=== PATIENT | female | born 2000 | race Caucasian/White ===

== ENCOUNTER 2020-12-28 22:05 | Emergency (ER) | payer OTHER, SELFPAY ==
--- NOTE | ~2020-12-28 | XR_ITS ---
XR foot RT min 3V 12/28/2020 22:37 INDICATION: Right foot pain after injury PROCEDURE: 4 views right foot COMPARISON: 07/20/2015 FINDINGS: Fracture, dislocation or subluxation is not identified. Lisfranc joint intact. The soft tis sues appear within normal limits. No foreign bodies are identified. IMPRESSION: 1: NO ACUTE BONE OR JOINT ABNORMALITY IDENTIFIED. Reviewed, dictated and finalized at location A. DRYING MACHINE OPERATOR
[2020-12-28 22:09] VITALS: BP 125/82; PULSE 94; RESP 18; TEMP 35.7; O2SAT 100
--- NOTE | 2020-12-28 22:26 | ED_ITS ---
HPI - Extremity Injury (Lower) General Chief Complaint: Extremity Injury, Lower Stated Complaint: R foot injury Time Seen by Provider: 12/28/20 22:13 Source: patient Mode of arrival: ambulatory Limitations: no limitations History of Present Illness HPI Narrative: Patient is a 20-year-old female complaining right foot pain after she dropped a heavy object on it at work this afternoon. Patient denies any other pain or injury. Related Data Home Medications Medication Instructions Recorded Confirmed No Home Medications 11/01/19 11/01/19 Allergies Allergy/AdvReac Type Severity Reaction Status Date / Time codeine Allergy Mild Rash Verified 12/28/20 22:12 Review of Systems Review of Systems: All systems reviewed & are unremarkable except as noted in HPI and below PMFSH Past Medical History Medical History (Updated 12/28/20 @ 22:35 by Cesar De Santiago MD) Anxiety Chlamydia Scoliosis Surgical History Surgical History H/O adenoidectomy History of tonsillectomy Social History Social History Smoking status: Never smoker Gender identity (if verbalized by the patient): Female Exam Const: General: no acute distress and alert Orientation/consciousness: patient oriented x3 HENMT: Head: normal to inspection Eyes: Conjunctivae: conjunctivae normal Neck: Neck: normal visual inspection Resp: Effort & Inspection: normal respiratory effort Skin: General skin exam: normal color Extrem: Other: Negative a foot deformity, mild ecchymosis dosral aspect of right foot, neurovasc intact Course Vital Signs Vital signs: Vital Signs Temperature 35.7 C L 12/28/20 22:09 Pulse Rate 94 12/28/20 22:09 Respiratory Rate 18 12/28/20 22:09 Blood Pressure 125/82 12/28/20 22:09 Pulse Oximetry 100 12/28/20 22:09 Temperature 35.7 C L 12/28/20 22:09 Pulse Rate 94 12/28/20 22:09 Respiratory Rate 18 12/28/20 22:09 Blood Pressure 125/82 12/28/20 22:09 Pulse Oximetry 100 12/28/20 22:09 MDM - Extremity Injury (Lower) Differential Diagnosis Differential diagnosis: Likely other (Foot sprain, foot sprain, foot contusion, fracture, dislocation) Discharge Plan Discharge Clinical Impression: Contusion of foot, right Qualifiers: Encounter type: initial encounter Qualified Code(s): S90.31XA - Contusion of right foot, initial encounter Patient Disposition: Home, Self-Care Condition: Stable Instructions: Foot Contusion (ED) Prescriptions: No Action No Home Medications RF: 0 Follow-up/Referrals: PHYSICIAN,RISK ASSESSOR [Primary Care Provider] - Time of Disposition: 22:35
== END 2020-12-28 23:01 | disposition home or self-care (01) ==
PROVIDERS: Emergency Provider Emergency Medicine
DX: S90.31XA Contusion of right foot, initial encounter (principal); W20.8XXA Other cause of strike by thrown, projected or falling object, initial encounter
CPT/HCPCS: 73630; 99283

== ENCOUNTER 2021-10-17 19:40 | Emergency (ER) | payer OTHER, SELFPAY ==
--- NOTE | ~2021-10-17 | US_ITS ---
EXAMINATION: US OB <=14 wk fetus w TV DATE: 10/17/2021 23:15 INDICATION: Vaginal bleeding during first trimester TECHNIQUE: Real-time pelvic transabdominal and transvaginal ultrasound was performed. COMPARISON: None. FINDINGS: The uterus measures 8.4 x 5.7 x 4.5 cm. The endometrial thickness measures 8 mm. No intrau terine gestational sac is identified. The right ovary measures 2.2 x 2.3 x 2.2 cm. The left ovary chelsea sures 2.4 x 1.5 x 1.9 cm. There is normal vascular flow in the ovaries. There is no free fluid in the pelvis. IMPRESSION: 1. of unknown location. Although no intrauterine gestational sac is seen, this may be due t o early gestation. If the patient is clinically stable, recommend followup with serial beta-hCG and u ltrasound. Reviewed, dictated and finalized at location F. ING ANCHOR IMPRESSION: 1. of unknown location. Although no intrauterine gestational sac is s een, this may be due to early gestation. If the patient is clinically stable, r ecommend followup with serial beta-hCG and ultrasound.
[2021-10-17 19:44] VITALS: BP 121/73; PULSE 97; RESP 20; TEMP 36.7; O2SAT 99
[2021-10-17 22:07] LABS: Basophils Percent Auto 0.3 % (0.2-1.2); Eosinophils Absolute Auto 0.3 K/mm3 (0-0.3); Eosinophils Percent Auto 4.3 % (0-4.4); Hematocrit 37.2 % (37.0-47.0); Hemoglobin 12.1 g/dL (12.0-15.0); Immature Granulocyte Absolute 0.02 K/mm3 (0.00-0.031); Immature Granulocyte Percent A 0.3 % (0-0.5); Lymphocytes Absolute Auto 2.09 K/mm3 (0.9-3.2); Lymphocytes Percent Auto 34.8 % (18.3-44.2); Mean Corpuscular HGB Conc 32.5 g/dl (32-36); Mean Corpuscular Hemoglobin 27.9 pg (26-34); Mean Corpuscular Volume 85.9 fl (80-100); Mean Platelet Volume 9.5 fl (7.4-10.4); Monocytes Absolute Auto 0.6 K/mm3 (0.1-0.6); Monocytes Percent Auto 9.2 % (2.6-8.5); Neutrophils Absolute Auto 3.1 K/mm3 (1.3-6.7); Neutrophils Percent Auto 51.1 % (45.5-73.1); Platelet Count Result 315 k/mm3 (150-375); Red Blood Count 4.33 M/mm3 (4.2-5.4); Red Cell Distribution Width 12.7 % (11.5-14.5)
--- NOTE | 2021-10-17 22:18 | ED.GENADULT ---
HPI - General Adult General Chief complaint: Vaginal Bleeding Stated complaint: 5 weeks , vaginal bleeding Time Seen by Provider: 10/17/21 22:02 Source: patient Mode of arrival: ambulatory Limitations: no limitations History of Present Illness HPI narrative: Pt presents of evaluation of vaginal bleeding. She states she took four home tests on 10/14/21 which were all positive. She has a hx of regular menstruation and LMP was 09/09/21. She states she had a quant hcg drawn today with a value of 18. . She has not had an ultrasound during this . She states this morning she noted a pink tinge on the tissue when wiping after urination. She contacted her OBGYN, Dr Moeller, today and states that she was told that her symptoms could be normal. They recommended she have a repeat quant drawn one week from today. She states tonight she noted a few drops of blood on the tissue when wiping after urination. She has not seen any blood in her clothing. She denies any fever, chills, nausea, vomiting, abdominal pain, vaginal discharge, change in bowel pattern. No hx of abdominal surgeries. She does not know her blood type. No additional complaints or concerns. Related Data Allergies Allergy/AdvReac Type Severity Reaction Status Date / Time codeine Allergy Mild Rash Verified 10/17/21 19:51 Review of Systems Review of Systems: CONSTITUTIONAL: Denies fever, chills, or sweats. EYES: Denies visual changes, redness, or discharge. ENT: Denies rhinorrhea, congestion, sore throat, or otalgia. CARDIOVASCULAR: Denies chest pain, palpitations, or edema. RESPIRATORY: Denies cough or dyspnea. GASTROINTESTINAL: Denies abdominal pain, nausea, vomiting, or diarrhea. GENITOURINARY: Reports blood on tissue when wiping after urinating. Denies vaginal bleeding otherwise. Denies dysuria or hematuria. SKIN: Denies rash or itching. MUSCULOSKELETAL: Denies back pain, joint pain, or myalgia. NEUROLOGIC: Denies headache, numbness, dizziness, or weakness. PSYCHIATRIC: Denies anxiety or depression. [facility] Past Medical History Medical History (Updated 10/18/21 @ 00:15 by Terry Pascual, JONN, ) Anxiety Chlamydia Scoliosis Surgical History Surgical History H/O adenoidectomy History of tonsillectomy Family History Family History (Updated 10/17/21 @ 22:26 by Terry Pascual [facility]) Mother No pertinent past medical history Social History Social History Smoking status: Never smoker Gender identity (if verbalized by the patient): Female Exam Narrative: GENERAL: Well-appearing, well-nourished, and in no acute distress. HEAD: Normocephalic, atraumatic. EYES: PERRLA and EOMI. ENT: Nares clear, no rhinorrhea or epistaxis. Mucous membranes moist. Oropharynx without tonsillar hypertrophy exudate or other lesions. Bilateral TMs pearly rubalcava nonbulging NECK: Supple. No adenopathy or masses. No carotid bruits or JVD CHEST: Clear to auscultation. No respiratory distress. No wheezes rales or rhonchi HEART: Regular rate and rhythm. No murmur heard. Normal peripheral pulses. ABDOMEN: Soft, nontender, nondistended, normal active bowel sounds. EXTREMITIES: Normal range of motion. No edema. GENITAL: No external genital lesions. No adnexal tenderness. No cervical motion tenderness. Small amount of mucus consistent blood-tinged drainage in vaginal vault. Cervical os is closed. SKIN: Warm, dry, no rash. NEURO: No focal deficits. Alert and oriented x3. PSYCH: Normal mood and affect. Course Course Emergency Course: This is a 20-year-old female who presented with complaints of blood on tissue when wiping after urination with recent positive test. Quant earlier today was 18. Repeat today 16.17. She is RH+. Patient had no abdominal pain and no abdominal tenderness. Ultrasound did not reveal intrauterine or e
[2021-10-17 22:25] LABS: Beta HCG Quantitative 16.17 mIU/ML
[2021-10-17 22:32] VITALS: BP 119/79; PULSE 102; RESP 18; O2SAT 100
[2021-10-17 22:55] LABS: Add Urine Microscopic? YES; Appearance Urine Cloudy (Clear); Bacteria Urine Trace /hpf; Bilirubin Urine Negative (Negative); Blood Urine 2+ (Negative); Budding Yeast Urine Present /hpf; Color Urine Yellow (Yellow); Glucose Urine UA Negative (Negative); Ketones Urine Negative (Negative); Leukocyte Esterase Ur 1+ LEU/UL (Negative); Mucus Urine Rare /lpf; Nitrate Urine Negative (Negative); Protein Urine Negative (Negative); Specific Grav Ur 1.018 (1.001-1.035); Squamous Epithelial Cell Urine Many /hpf (Few); Urobilinogen Urine Negative mg/dL (<2.0)
[2021-10-17 23:01] LABS: Alanine Aminotransferase 22 U/L (4-35); Albumin Level 4.7 g/dL (3.5-5.1); Alkaline Phosphatase 84 U/L (38-126); Anion Gap 6 mmol/L (8-16); Aspartate Amino Transferase 32 U/L (14-36); Bilirubin,Total 0.4 mg/dL (0.2-1.3); Blood Urea Nitrogen 13 mg/dL (7-17); Calcium 9.7 mg/dL (8.4-10.2); Carbon Dioxide 26 mmol/L (22-30); Chloride 105 mmol/L (98-107); Estimated CRCL calculation 102 ml/min; Estimated Glomerular Filt Rate > 60; Glucose 102 mg/dL (65-110); Lipase 53 U/L (23-300); Potassium 3.9 mmol/L (3.4-5.0); Sodium 137 mmol/L (137-145)
[2021-10-18 00:43] VITALS: BP 120/84; PULSE 100; RESP 18; O2SAT 100
== END 2021-10-18 00:48 | disposition home or self-care (01) ==
PROVIDERS: Emergency Medicine; Emergency Provider Nurse Practitioner
DX: O20.0 Threatened abortion (principal); O23.41 Unspecified infection of urinary tract in pregnancy, first trimester; Z3A.01 Less than 8 weeks gestation of pregnancy; Z88.5 Allergy status to narcotic agent
CPT/HCPCS: 36415; 76801; 76817; 80053; 81001; 83690; 84702; 85025; 86900; 86901; 87070; 87077; 87086; 87088; 87491; 87591; 87808; 99284

== ENCOUNTER 2022-01-14 12:22 | Emergency (ER) | payer OTHER, SELFPAY ==
[2022-01-14 12:29] VITALS: BP 129/89; PULSE 102; RESP 16; O2SAT 100
[2022-01-14 14:06] LABS: Basophils Percent Auto 0.5 % (0.2-1.2); Eosinophils Percent Auto 0.5 % (0-4.4); Hemoglobin 12.6 g/dL (12.0-15.0); Immature Granulocyte Absolute 0.01 K/mm3 (0.00-0.031); Immature Granulocyte Percent A 0.2 % (0-0.5); Lymphocytes Absolute Auto 1.67 K/mm3 (0.9-3.2); Lymphocytes Percent Auto 26.1 % (18.3-44.2); Mean Corpuscular HGB Conc 33.2 g/dl (32-36); Mean Corpuscular Hemoglobin 27.8 pg (26-34); Mean Corpuscular Volume 83.7 fl (80-100); Mean Platelet Volume 9.9 fl (7.4-10.4); Monocytes Absolute Auto 0.4 K/mm3 (0.1-0.6); Monocytes Percent Auto 6.9 % (2.6-8.5); Neutrophils Absolute Auto 4.2 K/mm3 (1.3-6.7); Neutrophils Percent Auto 65.8 % (45.5-73.1); Platelet Count Result 324 k/mm3 (150-375); Red Blood Count 4.54 M/mm3 (4.2-5.4); White Blood Count 6.4 K/mm3 (4.5-10.0)
--- NOTE | 2022-01-14 14:14 | ED.NAVMDI ---
HPI - Nausea/Vomiting/Diarrhea General Chief complaint: Nausea/Vomiting/Diarrhea Stated complaint: vomiting, 8 weeks Time Seen by Provider: 01/14/22 14:12 Source: patient Mode of arrival: ambulatory Limitations: no limitations History of Present Illness HPI Narrative: Patient is a 21-year-old female complaining of nausea and vomiting, nonbilious nonbloody x1 week. Patient states that she is 8 weeks . Patient denies any abdominal pain, pelvic pain, vaginal bleeding, vaginal discharge, urinary symptoms, fever or chills. 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 Related Data Allergies Allergy/AdvReac Type Severity Reaction Status Date / Time codeine Allergy Mild Rash Verified 10/17/21 19:51 Review of Systems Review of Systems: All systems reviewed & are unremarkable except as noted in HPI and below Constitutional: Constitutional: Denies body ache(s), Denies chills, Denies excessive sweating, Denies fatigue, Denies fever(s), Denies headache(s), Denies lethargy, Denies malaise, Denies weakness and Denies weight loss Eyes: Eyes: Denies blurry vision, Denies change in vision and Denies loss of vision ENT: Denies dizziness, Denies ear discharge, Denies headache(s), Denies lip swelling, Denies epistaxis, Denies nasal congestion, Denies neck pain, Denies throat swelling and Denies tongue swelling Cardiovascular: Cardiovascular: Denies chest pain, Denies chest pain at rest, Denies chest pain with activity, Denies diaphoresis, Denies rapid heart rate, Denies edema, Denies irregular heart rhythm, Denies lightheadedness, Denies palpitations, Denies dyspnea and Denies dyspnea on exertion Respiratory: Respiratory: Denies chest congestion, Denies cough, Denies hemoptysis, Denies dyspnea and Denies dyspnea on exertion Gastrointestinal: Gastrointestinal: Denies abdominal pain, Denies melena, Denies hematochezia, Denies diarrhea, Reports nausea, Reports vomiting and Denies hematemesis Musculoskeletal: Musculoskeletal: Denies abnormal gait, Denies deformity, Denies joint swelling, Denies limited range of motion, Denies neck pain and Denies numbness Neurologic: Denies Abnormal speech present, Denies abnormal gait, Denies confusion, Denies dizziness, Denies headache(s), Denies focal weakness, Denies loss of vision, Denies numbness, Denies Other visual disturbances, Denies Sensory deficit (Neuro) and Denies weakness Psychiatric: Psychiatric: Denies confusion, Denies depression, Denies auditory hallucinations, Denies homicidal ideation and Denies suicidal ideation Endocrine: Endocrine: Denies cold intolerance, Denies excessive sweating, Denies fatigue, Denies heat intolerance and Denies palpitations Hematologic/Lymphatic: Hematologic/Lymphatic: Denies easy bleeding and Denies easy bruising Allergic/Immunologic: Allergic/Immunologic: Denies lip swelling, Denies throat swelling and Denies tongue swelling PMFSH Past Medical History Medical History (Updated 01/14/22 @ 16:16 by Cesar De Santiago MD) Anxiety Chlamydia Scoliosis Surgical History Surgical History H/O adenoidectomy History of tonsillectomy Family History Family History Mother No pertinent past medical history Social History Social History Smoking status: Never smoker Gender identity (if verbalized by the patient): Female Exam Const: General: cooperative, healthy appearing, comfortable, no acute distress, well developed, alert and awake; No confusion Orientation/consciousness: oriented to person, oriented to place, oriented to time, patient oriented x3 and No confusion Limitations: no limitations HENMT: Head: normal to inspection, normocephalic and atraumatic Ears: hearing grossly normal bilaterally, TM normal on the right and TM normal on
[2022-01-14 14:15] LABS: Alanine Aminotransferase 31 U/L (4-35); Albumin Level 4.8 g/dL (3.5-5.1); Alkaline Phosphatase 92 U/L (38-126); Anion Gap 10 mmol/L (8-16); Aspartate Amino Transferase 46 U/L (14-36); Blood Urea Nitrogen 17 mg/dL (7-17); Calcium 9.3 mg/dL (8.4-10.2); Carbon Dioxide 23 mmol/L (22-30); Chloride 104 mmol/L (98-107); Estimated CRCL calculation 117 ml/min; Estimated Glomerular Filt Rate > 60; Glucose 79 mg/dL (65-110); Lipase 47 U/L (23-300); Potassium 3.8 mmol/L (3.4-5.0); Sodium 137 mmol/L (137-145)
[2022-01-14] MEDS: SODIUM CHLORIDE 0.9% IV 1,000 ML 999 ML IV CONT (14:25)
[2022-01-14] MEDS: PROMETHAZINE HCL 25 MG/ML AMPUL 12.5 MG IV PUSH (14:43)
[2022-01-14 15:45] LABS: Add Urine Microscopic? YES; Appearance Urine Cloudy (Clear); Bilirubin Urine Negative (Negative); Color Urine Amber (Yellow); Glucose Urine UA Negative (Negative); Ketones Urine 2+ mg/dL (Negative); Leukocyte Esterase Ur 2+ LEU/UL (Negative); Mucus Urine Heavy /lpf; Nitrate Urine Negative (Negative); Protein Urine 1+ mg/dL (Negative); RBC Urine 21-50 /hpf (0-2); Squamous Epithelial Cell Urine Many /hpf (Few); WBC Urine 51-75 /hpf
[2022-01-14 15:46] LABS: Blood Urine Negative (Negative); Specific Grav Ur 1.035 (1.001-1.035)
== END 2022-01-14 16:30 | disposition home or self-care (01) ==
PROVIDERS: Emergency Medicine; Emergency Provider Emergency Medicine
DX: O21.9 Vomiting of pregnancy, unspecified (principal); O23.41 Unspecified infection of urinary tract in pregnancy, first trimester; Z3A.08 8 weeks gestation of pregnancy
CPT/HCPCS: 36415; 80053; 81001; 81025; 83690; 84702; 85025; 87086; 87088; 96361; 96374; 99284; J2550; J7030

== ENCOUNTER 2022-06-16 15:52 | Observation (INO) | payer OTHER, SELFPAY ==
[2022-06-16 16:12] VITALS: BP 125/73; PULSE 105; BMI 33.7
--- NOTE | 2022-06-16 16:12 | OBADM ---
This patient, Sangeeta Mohan, admitted to the OB room OB Post 115 for observation. Patient/family oriented to hospital policies and general routines including ID bracelet, bed and alarms, visiting hours, pain management, procedures, bathroom and other care routines, personal items, smoking policy, room service/diet, and visiting hours. Patient/Family are encouraged to report perceived risks to care and to ask questions if they do not understand what they are told or what they should do. Pt. states she had ctxns from [id number] this a.m., they then stopped and then started back up at 1430 this afternoon. She states she feels them in her lower abdomen and around her back and rates them 4/10. Pt. states she has been drinking water all day and denies vaginal bleeding and leaking of fluid.
[2022-06-16 16:16] VITALS: BP 131/67; PULSE 103; TEMP 37
[2022-06-16 16:31] VITALS: BP 116/66; PULSE 103
[2022-06-16] MEDS: TERBUTALINE SULFATE 1 MG/ML VIAL 0.25 MG SUB-Q (16:37)
[2022-06-16 16:46] VITALS: BP 118/61; PULSE 110
[2022-06-16 17:01] VITALS: BP 115/60; PULSE 117
--- NOTE | 2022-06-20 07:32 | PM.OBTRLD ---
OB - Triage/Final Diagnosis Visit Information Reason for evaluation: threatened labor Comments/Additional reasons for admission: I have assessed the risk for this patient, Sangeeta Kristi Mohan, and determined that she would benefit from observation care.
== END 2022-06-16 17:47 | disposition home or self-care (01) ==
PROVIDERS: Admitting Provider Obstetrics & Gynecology; Visit Provider Obstetrics & Gynecology
DX: O47.1 False labor at or after 37 completed weeks of gestation (principal); Z3A.28 28 weeks gestation of pregnancy
CPT/HCPCS: 96372; G0378; G0379; J3105

== ENCOUNTER 2022-08-02 20:22 | Observation (INO) | payer OTHER, SELFPAY ==
[2022-08-02] VITALS (7 sets, daily range): BP systolic 123–136; BP diastolic 56–80; PULSE 93–138; BMI 30.4
[2022-08-02] MEDS: NIFEdipine 10 MG CAPSULE PO (21:44)
--- NOTE | 2022-08-02 21:51 | PC.NURSE ---
2103- Called Dr. Moeller- informed of pt admission for contractions that are 2 minutes apart lasting 60 sec. she states that she has had them consistently since 1909. FHT reviewed. sve fingertip/soft/anterior. orders received to PO hydrate, procardia 10mg po if contractions do not subside with hydration, will continue to monitor and call if questions/concerns.
--- NOTE | 2022-08-02 22:14 | PC.NURSE ---
2115- pt states that she has felt more wet today than prior . not sure if water broke or not.
--- NOTE | 2022-08-02 22:16 | OBADM ---
This patient, Sangeeta Mohan, admitted to the OB room OB Post 113 for observation. Patient/family oriented to hospital policies and general routines including ID bracelet, bed and alarms, visiting hours, pain management, procedures, bathroom and other care routines, personal items, smoking policy, room service/diet, and visiting hours. Patient/Family are encouraged to report perceived risks to care and to ask questions if they do not understand what they are told or what they should do.
--- NOTE | 2022-08-02 23:24 | PC.NURSE ---
2250- CALLED Dr. Moeller- [facility] reviewed. ROMANA recheck unchanged from previous exam. pt states that her contractions are about the same as when she came in. informed Dr. of white cheesy vaginal discharge also noted on exam. pt states that she had yeast infection about 2 weeks ago but isn't sure if it ever cleared up. order received to d/c pt home with instructions to increase po fluids,increase periods of rest, and Rx for diflucan sent to pharmacy.
--- NOTE | 2022-08-03 11:30 | PM.OBTRLD ---
OB - Triage/Final Diagnosis Visit Information Comments/Additional reasons for admission: I have assessed the risk for this patient, Sangeeta Mohan, and determined that she would benefit from observation care. Evaluation Vital signs: Vital Signs - 24 hr 08/02/22 21:13 08/02/22 21:46 08/02/22 22:01 Pulse Rate 93 99 138 H Blood Pressure 129/67 134/80 123/66 08/02/22 22:15 08/02/22 22:30 08/02/22 22:46 Pulse Rate 113 H 120 H 102 H Blood Pressure 129/74 136/71 134/56 L 08/02/22 23:00 Pulse Rate 116 H Blood Pressure 134/67 Final Diagnosis (1) contractions: Code(s): O47.00 - False labor before 37 completed weeks of gestation, unspecified trimester Status: Acute
== END 2022-08-02 23:14 | disposition home or self-care (01) ==
PROVIDERS: Admitting Provider Obstetrics & Gynecology; Visit Provider Obstetrics & Gynecology
DX: O47.03 False labor before 37 completed weeks of gestation, third trimester (principal); Z3A.35 35 weeks gestation of pregnancy
CPT/HCPCS: 84112; A9270; G0378; G0379

== ENCOUNTER 2022-08-11 06:55 | Inpatient (IN) | payer OTHER, SELFPAY ==
[2022-08-11] VITALS (59 sets, daily range): BP systolic 79–140; BP diastolic 46–100; PULSE 88–135; RESP 16–18; TEMP 36–36.6; O2SAT 98–100; BMI 34.4
--- OUTSIDE RECORDS SUMMARY | 2022-08-11 07:15 | XMS_ITS ---
:2000 Author Care Team Providers Name Role Phone Chinyere Moeller Primary Care Provider Unavailable Allergies Code Code System Name Reaction Severity Status Onset 2670 RxNorm Codeine Rash Mild Active ? Medications Name Status Start Date Stop Date ? ? acetaminophen 120 mg-codeine 12 mg/5 mL oral solution Unknown ? Not available albuterol sulfate HFA 90 mcg/actuation aerosol inhaler Active ? Not available amoxicillin 250 mg/5 mL oral suspension Unknown ? Not available amoxicillin 500 mg capsule Unknown ? Not a vailable amoxicillin 875 mg tablet Unknown ? Not av ailable amoxicillin 875 mg-potassium clavulanate 125 mg tablet Completed ? 12/08/2019 azithromycin 250 mg tablet Completed ? 08/31 TAKE 4 TABLETS BY MOUTH 1 TIME azithromycin 500 mg tablet Completed ? 05/29 TK 2 TS PO QD FOR 1 DAY benzonatate 200 mg capsule Completed ? 12/08 TK ONE C PO TID PRN COU cephalexin 500 mg capsule Completed ? 2018 cetirizine 10 mg tablet Completed ? 12/08/19 20 cyclobenzaprine 5 mg tablet Completed ? 07/21 TAKE 1 TABLET BY MOUTH EVERY 8 HOURS etonogestrel 0.12 mg-ethinyl estradiol 0.015 mg/24 hr Completed ? 08/10/2020 vaginal ring famotidine 20 mg tablet Unknown ? Not avai lable TK 1 T PO Q 12 H FOR 5 DAYS fluconazole 150 mg tablet Completed ? 2019 fluticasone propionate 50 mcg/actuation nasal Completed ? 02/10/2018 spray,suspension hydrocodone 5 mg-acetaminophen 325 mg tablet Completed ? 02/10/2018 ibuprofen 800 mg tablet Active ? Not avai lable ID NOW COVID-19 Test Kit Completed ? 021
--- OUTSIDE RECORDS SUMMARY | 2022-08-11 07:15 | XMS_ITS ---
:2000 Author Care Team Providers Name Role Phone LOC CRAFT MD Primary Care Provider [phone] Allergies Code Code System Name Reaction Severity [...] Completed ? 12/08/2019 azithromycin 250 mg tablet Unknown ? Not a vailable azithromycin 500 mg tablet Active ? Not a vailable TK 2 TS PO QD FOR 1 DAY benzonatate 200 mg capsule Completed ? 12/08 TK ONE C PO TID PRN COU cephalexin 500 mg capsule Completed ? 2018 cetirizine 10 mg tablet Completed ? 12/08/19 20 cyclobenzaprine 5 mg tablet Unknown ? Not available TK 1 T PO Q 8 H etonogestrel 0.12 mg-ethinyl estradiol 0.015 mg/24 hr Completed ? 08/10/2020 vaginal ring famotidine 20 mg tablet Unknown ? Not avai lable TK 1 T PO Q 12 H FOR 5 DAYS fluconazole 150 mg tablet Completed ? 2019 fluticasone propionate 50 mcg/actuation nasal Completed ? 02/10/2018 spray,suspension hydrocodone 5 mg-acetaminophen 325 mg tablet Completed ? 02/10/2018 ibuprofen 800 mg tablet Completed ? 08/10/20 20 ketorolac 10 mg tablet Completed ? 8 lidocaine 2 % mucosal jelly in applicator Completed ? 12/08/2019
--- NOTE | 2022-08-11 07:17 | WPDHPUPDATE1 ---
History and Physical Update Update Date/Time: 08/11/22 07:17 21 yo at 36w4d who presents with spontaneous rupture of membranes. History and Physical has been reviewed, including an updated exam of the patient. There are NO changes in the patient's condition. Risks, benefits, and alternatives have been discussed and questions answered. Patient agrees to proceed with procedure.
[2022-08-11] MEDS: LACTATED RINGERS 1,000 ML 125 ML IV CONT ×2 (08:11→12:20)
[2022-08-11] MEDS: AMPICILLIN 2 GM/NS 100 ML 2 GM/100 ML BAG IVPB (08:12)
--- NOTE | 2022-08-11 08:20 | LDADM ---
This patient, Sangeeta Mohan, was admitted to Labor/Delivery/Recovery 104 on 08/11/22 at 06:55. Plans for labor, pain management and were discussed with patient. Patient/family oriented to hospital policies and general routines including ID bracelet, bed and alarms, visiting hours, pain management, procedures, bathroom and other care routines, personal items, smoking policy, room service/diet and guest tray routines, infant security routines, and visiting hours. Patient/Family are encouraged to report perceived risks to care and to ask questions if they do not understand what they are told or what they should do. See OBIX for further documentation.
[2022-08-11 08:43] LABS: Basophils Percent Auto 0.2 % (0.2-1.2); Eosinophils Absolute Auto 0.1 K/mm3 (0-0.3); Eosinophils Percent Auto 0.6 % (0-4.4); Hematocrit 28.7 % (37.0-47.0); Hemoglobin 8.8 g/dL (12.0-15.0); Immature Granulocyte Absolute 0.04 K/mm3 (0.00-0.031); Immature Granulocyte Percent A 0.5 % (0-0.5); Lymphocytes Absolute Auto 1.47 K/mm3 (0.9-3.2); Lymphocytes Percent Auto 18.2 % (18.3-44.2); Mean Corpuscular HGB Conc 30.7 g/dl (32-36); Mean Corpuscular Volume 81.5 fl (80-100); Mean Platelet Volume 10.3 fl (7.4-10.4); Monocytes Absolute Auto 0.6 K/mm3 (0.1-0.6); Monocytes Percent Auto 7.8 % (2.6-8.5); Neutrophils Absolute Auto 5.9 K/mm3 (1.3-6.7); Neutrophils Percent Auto 72.7 % (45.5-73.1); Platelet Count Result 297 k/mm3 (150-375); Red Blood Count 3.52 M/mm3 (4.2-5.4); Red Cell Distribution Width 14.5 % (11.5-14.5); White Blood Count 8.1 K/mm3 (4.5-10.0)
[2022-08-11] MEDS: OXYTOCIN 30 UNITS/NS 500 ML 30 UNITS/500 ML BAG IV CONT (10:02)
[2022-08-11] MEDS: fentaNYL CITRATE INJ (*CRX) 100 MCG/2 ML VIAL 50 MCG IV PUSH (11:35)
[2022-08-11] MEDS: AMPICILLIN 1 GM/NS 50 ML 1 GM/50 ML BAG IVPB (12:20)
--- NOTE | 2022-08-11 12:22 | WPDANESEPPF ---
Anes - Initial Pre Proc Eval Procedure: labor epidural Date/Time: 08/11/22 12:22 Surgeon: Chinyere Moeller MD Pre Op Diagnosis: labor pain Pre Op Diagnosis: Labor/ROM Patient Data Age: 21 Gender: F Height: 1.63 m Weight: 91 kg Last Vital Signs Temp 36.4 C 08/11/22 10:19 Pulse 106 H 08/11/22 12:02 BP 119/67 08/11/22 12:02 O2 Del Method Room Air 08/11/22 08:19 Allergies Allergy/AdvReac Type Severity Reaction Status Date / Time codeine Allergy Mild Rash Verified 08/07/22 11:05 cephalexin Allergy Severe Rash Uncoded 08/07/22 11:05 Home Medications Medication Instructions Recorded Confirmed Type ferrous sulfate 324 mg (65 mg 324 mg PO BID 06/16/22 08/11/22 History iron) tablet,delayed release vit no.133-ferrous 1 tablet PO DAILY 06/16/22 08/11/22 History fumarate 28 mg-folic acid 800 mcg tablet () Laboratory Tests 08/11/22 08/11/22 08/11/22 08:01 08:01 08:01 WBC 8.1 K/mm3 K/mm3 (4.5-10.0) RBC 3.52 M/mm3 L M/mm3 (4.2-5.4) Hgb 8.8 g/dL L D g/dL (12.0-15.0) Hct 28.7 % L % (37.0-47.0) MCV 81.5 fl fl (80-100) MCH 25.0 pg L pg (26-34) MCHC 30.7 g/dl L g/dl (32-36) RDW 14.5 % % (11.5-14.5) Plt Count 297 k/mm3 k/mm3 (150-375) MPV 10.3 fl fl (7.4-10.4) Immature Gran % (Auto) 0.5 % % (0-0.5) Neut % (Auto) 72.7 % % (45.5-73.1) Lymph % (Auto) 18.2 % L % (18.3-44.2) [place] % (Auto) 7.8 % % (2.6-8.5) Eos % (Auto) 0.6 % % (0-4.4) Baso % (Auto) 0.2 % % (0.2-1.2) Lymph # (Auto) 1.47 K/mm3 K/mm3 (0.9-3.2) [place] # (Auto) 0.6 K/mm3 K/mm3 (0.1-0.6) Eos # (Auto) 0.1 K/mm3 K/mm3 (0-0.3) Baso # (Auto) 0.0 K/mm3 K/mm3 (0.0-0.1) Abs Immat Gran (auto) 0.04 K/mm3 H K/mm3 (0.00-0.031) Absolute Neuts (auto) 5.9 K/mm3 K/mm3 (1.3-6.7) Absolute Nucleated RBC 0.0 K/mm3 K/mm3 (0.0-0.012) Nucleated RBC % 0.0 % % (0.0-0.2) RPR Pending Blood Type AB Positive Antibody Screen Negative Patient hx anesthesia problems: none Family hx anesthesia problems: none Results Review: All pre-operative results and documents have been reviewed as part of the pre-operative evaluation. [facility] Past Medical History Medical History (Updated 08/03/22 @ 11:31 by Chinyere Moeller MD) Anxiety Chlamydia Scoliosis Surgical History Surgical History H/O adenoidectomy History of tonsillectomy Family History Family History (Updated 08/06/22 @ 12:35 by Melanie Newton RN) Mother No pertinent past medical history Father Cerebrovascular accident Social History Social History (Updated 01/23/22 @ 14:13 by Darlene Corona MA) Smoking status: Never smoker Alcohol intake: never Substance use: never Substance use type: does not use Gender identity (if verbalized by the patient): Female Spiritual care concerns: No Has the Lack of Transportation Kept You From Medical Appointments or From Getting Medications?: No Within the Past 12 Months, Were You Worried Whether Your Food Would Run Out Before You Got Money to Buy More?: Never True What is Your Housing Situation Today?: I Have Housing Are You Worried That in the Next 2 Months, You May Not Have Your Own Housing to Live In?: No Do You Have Trouble Paying Your Heating Or Electricity Bill?: No Do You Have Trouble Paying For Medicines?: No Are You Currently Unemployed and Looking for Work?: No Highest Level of Education Completed: High School Diploma/GED Do You Have Trouble With Childcare or the Care of a Family Member?: No Anes - Eval Final PreProcedure Day of Procedure 08/11/22 12:22 Patient weight: obese ASA classification: II Anesthetic plan: proceed An
--- NOTE | 2022-08-11 14:10 | PM.OBPRVD ---
OB - Delivery Note Procedure Procedure: Patient pushed for a spontaneous vaginal delivery. The fetus was delivered atraumatically and placed on the maternal abdomen. The cord was clamped and cut after 1 minute of life. The cord was double clamped and cut and a segment of cord was collected for cord gases. Cord blood was collected for blood type and Coomb's testing. The placenta delivered spontaneously and was noted to be intact. The perineum was inspected and there were no lacerations noted. The uterus was firm and good hemostasis was noted. The patient and fetus were stable in the delivery room. Induction method: None Delivery augmentation: Pitocin Delivery monitor: External FHT Route of delivery: Episiotomy description: None Laceration Description: None Specimen: No Quantitative Blood Loss (ml): 200 Anesthesia type: Epidural Disposition: Floor () Complications: No immediate complications Baby Date of : 08/11/22 Time of : 14:00 Weeks of gestation at delivery: 36 Infant gender: Female Weight (pounds): 6 Weight (ounces): 5 presentation: vertex position: Right Occiput Anterior Placenta delivery description: Spontaneous Cord Vessel Description: 3 Vessels score one minute: 8 score five minutes: 9 AMG Delivery Billing Delivery Delivery: Delivery Charge
--- NOTE | 2022-08-11 16:50 | OBPPTRN ---
Patient transferred to post room # 282 via wheelchair. Support person present. Oriented to unit, room, information board, rooming in, admission packet and security measures. Patient verbalizes understanding.
[2022-08-11] MEDS: POLYSACCHARIDE IRON COMPLEX 150 MG CAPSULE PO (17:33)
[2022-08-11] MEDS: IBUPROFEN 600 MG TABLET PO (18:59)
[2022-08-11] MEDS: DOCUSATE SODIUM 100 MG CAPSULE PO (18:59)
[2022-08-12 03:45] VITALS: BP 118/78; PULSE 93; RESP 16; TEMP 36.3; O2SAT 99
[2022-08-12] MEDS: IBUPROFEN 600 MG TABLET PO ×2 (05:41→19:20)
[2022-08-12 06:04] LABS: Hematocrit 26.8 % (37.0-47.0); Hemoglobin 8.3 g/dL (12.0-15.0)
--- NOTE | 2022-08-12 07:19 | PM.OBDSVD ---
DS: Admitting Diagnosis Discharge Date 08/12/22 Admitting Diagnosis intrauterine at term DS: Discharge Diagnosis Discharge Diagnosis Plan same OB - DS: Summary OB Procedures : None OB Procedures Intrapartum: Spontaneous Vag Delivery OB Procedures: : None Status at Discharge Functional status at discharge: independent ambulation Overall status at discharge: patient is back to baseline Time Spent with Patient Time attestation: Total time spent providing and/or coordinating discharge services: Time spent: Less than 30 minutes Exam Const: General: comfortable and no acute distress Resp: Effort & Inspection: normal respiratory effort Auscultation: clear to auscultation bilaterally Cardio: Rate: regular rate GI: GI Palp: Yes Soft to palpation Auscultation: normal bowel sounds Other: Fundus firm below umbilicus Psych: Appearance: grossly normal Mental Status: mental status grossly normal Affect: normal affect DS: Data Data Completed and Pending Labs on day of discharge: Labs from last 24 hours 08/12/22 08/11/22 08/11/22 05:37 08:01 08:01 WBC RBC Hgb 8.3 L Hct 26.8 L MCV MCH MCHC RDW Plt Count MPV Immature Gran % (Auto) Neut % (Auto) Lymph % (Auto) [place] % (Auto) Eos % (Auto) Baso % (Auto) Lymph # (Auto) [place] # (Auto) Eos # (Auto) Baso # (Auto) Abs Immat Gran (auto) Absolute Neuts (auto) Absolute Nucleated RBC Nucleated RBC % RPR Pending Blood Type AB Positive Antibody Screen Negative 08/11/22 08:01 WBC 8.1 RBC 3.52 L Hgb 8.8 L D Hct 28.7 L MCV 81.5 MCH 25.0 L MCHC 30.7 L RDW 14.5 Plt Count 297 MPV 10.3 Immature Gran % (Auto) 0.5 Neut % (Auto) 72.7 Lymph % (Auto) 18.2 L [place] % (Auto) 7.8 Eos % (Auto) 0.6 Baso % (Auto) 0.2 Lymph # (Auto) 1.47 [place] # (Auto) 0.6 Eos # (Auto) 0.1 Baso # (Auto) 0.0 Abs Immat Gran (auto) 0.04 H Absolute Neuts (auto) 5.9 Absolute Nucleated RBC 0.0 Nucleated RBC % 0.0 RPR Blood Type Antibody Screen Discharge Plan Discharge Attending physician on discharge: Matthias Benz Discharging Clinician: Matthias Benz Patient Disposition: Home, Self-Care Activity: as tolerated and pelvic rest Diet: regular Patient Instructions: Antibiotic Form, Vaginal Delivery (DC) Stand Alone Forms: General Discharge Information Follow-up/Referrals: Chinyere Moeller MD [Physician] - Discharge Medications: New acetaminophen [Mapap (acetaminophen)] 325 mg Tablet 650 mg PO Q6H PRN (Reason: Mild Pain (1-3) Or Headache) Qty: 30 0RF ibuprofen 600 mg Tablet 600 mg PO Q6H PRN (Reason: Cramping) Qty: 30 0RF Continued ferrous sulfate 324 mg (65 mg iron) Tablet,Delayed Release (Dr/Ec) 324 mg PO BID 28-800 mg-mcg Tablet 1 tablet PO DAILY Date of admission: 08/11/22 06:55 Primary Care Provider: UNKNOWN,DOCTOR Admitting Provider: Chinyere Moeller Attending physician on admission: Chinyere Moeller Condition: Stable
[2022-08-12 08:45] VITALS: BP 126/70; PULSE 94; RESP 14; TEMP 36.2
[2022-08-12] MEDS: MULTIVIT/MIN/PREN/FOL AC/IRON TABLET 1 TAB PO (08:46)
[2022-08-12] MEDS: POLYSACCHARIDE IRON COMPLEX 150 MG CAPSULE PO ×2 (08:46→16:15)
[2022-08-12] MEDS: DOCUSATE SODIUM 100 MG CAPSULE PO ×2 (08:47→16:15)
[2022-08-12 16:10] VITALS: BP 102/65; RESP 16; TEMP 36.4; O2SAT 99
[2022-08-12 19:10] VITALS: BP 128/70; RESP 16; TEMP 36.4; O2SAT 100
[2022-08-13] MEDS: TETANUS,DIPHTHERIA,AC PERTUSSIS ADULT (0.5 ML) BOOSTRIX IM (00:14)
[2022-08-13 07:28] LABS: Rapid Plasma Reagin Non-Reactive (NonReactive)
[2022-08-13] MEDS: DOCUSATE SODIUM 100 MG CAPSULE PO (07:58)
[2022-08-13] MEDS: MULTIVIT/MIN/PREN/FOL AC/IRON TABLET 1 TAB PO (07:58)
[2022-08-13] MEDS: POLYSACCHARIDE IRON COMPLEX 150 MG CAPSULE PO (07:58)
[2022-08-13] MEDS: IBUPROFEN 600 MG TABLET PO (07:59)
[2022-08-13 08:00] VITALS: BP 126/69; PULSE 98; RESP 16; TEMP 36.4; O2SAT 100
--- NOTE | 2022-08-13 11:30 | PC.NURSE ---
Patient viewed the discharge video Mother & Baby Care, The First Two Weeks . Patient was given the opportunity and encouraged to ask questions. Patient verbalized understanding of information shared and has been given the mother/baby guide for home reference.
--- NOTE | 2022-08-13 13:41 | PC.NURSE ---
[id number] Introductions were made, then consulted with patient to assess needs related to . Mother led the conversation with her?plans to feed?her infant and the?experience so far. Mother has questions and is open for discussion at this time. Mother's first infant was 37.3 weeks and we discussed her late pre-term of 36.4 EGA. Mother is feeding appropriately for growth of infant and understands stimulating infant to eat if needed. Infant has had appropriate feedings in the last 24 hours meets the outcomes for weight, output and jaundice at this time. Mother states she is confident to continue effectively breastfeed her infant at home or when to call for assistance and denies any additional assistance or education at this time. Reviewed risks of a late infant and what to watch for keeping infant actively and drinking at the breast. Mother placed infant skin to skin with encouragement, we reviewed the massage touch to stimulate to breastfeed, then reviewed bringing into mother's body nice a close and how to encourage optimal big, wide, open gape with a deep latch. Mother is also supplementing for low blood sugars. We discussed the risks and benefits of the feeding options. Reinforced understanding of milk production, transition of milk, signs of adequate intake, prevention/relief of engorgement, responsive after visualizing feeding cues, the different methods of stimulating to breastfeed 2-3 hours after the start of the last feeding, community resources, medication information reviewed per [facility] and when to call a provider using the resource of the mom and baby guide/[facility] website. Resources provided for inpatient and outpatient services using a resource guide. Mother voiced understanding of information and will call if there is a request for assistance. Reported to primary RN.
[2022-08-14 07:52] VITALS: BP 123/77; PULSE 98; RESP 20; TEMP 37.4; O2SAT 99
== END 2022-08-13 12:55 | disposition home or self-care (01) | DRG 560 ==
LOC: ANHLDR 11:02 → ANHOB2 08-12 07:20 → ANHLDR 08-15 10:28 → ANHOB2 08-15 10:28
PROVIDERS: Admitting Provider Student in an Organized Health Care Education/Training Program; Visit Provider Student in an Organized Health Care Education/Training Program
DX: O99.02 Anemia complicating childbirth (principal); D64.9 Anemia, unspecified; Z37.0 Single live birth; Z3A.36 36 weeks gestation of pregnancy; Z23 Encounter for immunization
CPT/HCPCS: 36415; 84112; 85014; 85018; 85025; 86592; 86850; 86900; 86901; 90471; 90686; 90715; A9270; G0008; J0290; J2590; J2795; J3010; J7120

== ENCOUNTER 2022-11-14 16:48 | Emergency (ER) | payer OTHER, SELFPAY ==
[2022-11-14 16:50] VITALS: BP 129/61; PULSE 99; RESP 18; TEMP 36.7; O2SAT 99
--- NOTE | 2022-11-14 17:06 | ED.FEMALEGU ---
HPI - Female Genitourinary General Chief complaint: Urogenital-Female Stated complaint: UTI symptoms - lower back pain Time Seen by Provider: 11/14/22 16:50 History of Present Illness HPI Narrative: This is a 21-year-old female coming in with chief complaint of UTI symptoms x10 days. She reports urinary urgency, frequency, dysuria. Also reports bilateral flank pain and intermittent pelvic pain. States these symptoms are very similar to her past UTIs. Reports history of multiple UTIs during her previous last year; delivery on 08/11/2022. She does not have any concern for STDs. Denies hematuria. Denies fevers. Related Data Home Medications Medication Instructions Recorded Confirmed ferrous sulfate 324 mg (65 mg 324 mg PO BID 06/16/22 08/11/22 iron) tablet,delayed release vit no.133-ferrous 1 tablet PO DAILY 06/16/22 08/11/22 fumarate 28 mg-folic acid 800 mcg tablet () Allergies Allergy/AdvReac Type Severity Reaction Status Date / Time codeine Allergy Mild Rash Verified 11/14/22 16:49 cephalexin Allergy Severe Rash Uncoded 11/14/22 16:49 Review of Systems Review of Systems: CONSTITUTIONAL: Denies fever, chills, or sweats. EYES: Denies visual changes, redness, or discharge. ENT: Denies rhinorrhea, congestion, sore throat, or otalgia. CARDIOVASCULAR: Denies chest pain, palpitations, or edema. RESPIRATORY: Denies cough or dyspnea. GASTROINTESTINAL: Reports lower abdominal pain. Denies nausea, vomiting, or diarrhea. GENITOURINARY: Reports frequency, urgency, dysuria, flank pain. denies hematuria. SKIN: Denies rash or itching. MUSCULOSKELETAL: Denies back pain, joint pain, or myalgia. NEUROLOGIC: Denies headache, numbness, dizziness, or weakness. PSYCHIATRIC: Denies anxiety or depression. [facility] Past Medical History Medical History (Updated 11/14/22 @ 17:24 by Andres Mercer PA-C) Anxiety Chlamydia Scoliosis Surgical History Surgical History H/O adenoidectomy History of tonsillectomy Family History Family History Mother No pertinent past medical history Father Cerebrovascular accident Social History Social History Smoking status: Never smoker Alcohol intake: never Substance use: never Substance use type: does not use Lack of Transportation: No Lack of Food: Never True Current Housing: I Have Housing Concerned About Future Housing: No Difficulty Paying Gas/Electric Bills: No Difficulty Paying for Meds: No Currently Unemployed: No Education: High School Diploma/GED Difficulty w/ Childcare or Family Care: No Living arrangements: with family Gender identity (if verbalized by the patient): Female Spiritual care concerns: No Exam Narrative: GENERAL: Well-appearing, well-nourished, and in no acute distress. HEAD: Normocephalic, atraumatic. EYES: PERRLA and EOMI. ENT: Nares clear, no rhinorrhea or epistaxis. Mucous membranes moist. Oropharynx without tonsillar hypertrophy exudate or other lesions. Bilateral TMs pearly rubalcava nonbulging NECK: Supple. No adenopathy or masses. No carotid bruits or JVD CHEST: Clear to auscultation. No respiratory distress. No wheezes rales or rhonchi HEART: Regular rate and rhythm. No murmur heard. Normal peripheral pulses. ABDOMEN: Striae throughout the abdomen. Minimal suprapubic tenderness. Soft, nontender, nondistended, normal active bowel sounds. No tenderness to the bilateral flanks. EXTREMITIES: Normal range of motion. No edema. SKIN: Warm, dry, no rash. NEURO: No focal deficits. Alert and oriented x3. PSYCH: Normal mood and affect. Course Vital Signs Vital signs: Vital Signs Temperature 98.1 F 11/14/22 16:50 Pulse Rate 99 11/14/22 16:50 Respiratory Rate 18 11/14/22 16:50 Blood Pressure 129/61 11/14/22 16:50 Pulse Ox
[2022-11-14 17:14] LABS: Appearance Urine Cloudy (Clear); Bilirubin Urine Negative (Negative); Blood Urine Trace-intact (Negative); Color Urine Yellow (Yellow); Glucose Urine UA Negative (Negative); Ketones Urine 1+ mg/dL (Negative); Leukocyte Esterase Ur 1+ LEU/UL (Negative); Nitrate Urine Positive (Negative); Protein Urine 1+ mg/dL (Negative); Specific Grav Ur 1.025 (1.001-1.035)
[2022-11-14 17:18] LABS: Bacteria Urine 4+ /hpf; Mucus Urine Moderate /lpf; Squamous Epithelial Cell Urine Few /hpf (Few); WBC Urine >75 /hpf
[2022-11-14 17:19] LABS: Add Urine Microscopic? YES
== END 2022-11-14 17:52 | disposition home or self-care (01) ==
LOC: ANHED 17:48
PROVIDERS: Emergency Provider Nurse Practitioner Family
DX: N30.90 Cystitis, unspecified without hematuria (principal); F41.9 Anxiety disorder, unspecified
CPT/HCPCS: 81001; 81025; 87077; 87086; 87088; 87186; 99283

== ENCOUNTER → 2023-04-16 10:00 | Outpatient (CLI) | payer OTHER, SELFPAY ==
--- NOTE | ~2023-04-16 | XR_ITS ---
Right Hand Technique: PA, oblique, and lateral views were obtained. Clinical History: Pain COMPARISON: 11/01/2019 Findings: No acute fracture or dislocation is seen. Stable chronic deformity of the distal tuft of th e third distal findings. Osseous alignment is anatomic. Joint spaces are preserved. Soft tissues are unremarkable. Impression: No acute abnormality. Stable chronic deformity of the distal kasey of the third distal phalanx. This is unchanged since 0. Reviewed, dictated and finalized at location . Impression: No acute abnormality. Stable chronic deformity of the distal kasey of the third distal phalanx. This is unchanged since 2019.
== END ==
PROVIDERS: PCP Nurse Practitioner Family; Visit Provider Nurse Practitioner Family
DX: M25.541 Pain in joints of right hand (principal)
CPT/HCPCS: 73130

== ENCOUNTER 2023-12-31 09:14 | Outpatient (CLI) | payer OTHER, SELFPAY ==
[2023-12-31 10:51] LABS: Beta HCG Quantitative < 2.39 mIU/ML
== END 2023-12-31 09:15 | disposition home or self-care (01) ==
LOC: ANHLAB 09:17
PROVIDERS: PCP Nurse Practitioner Family; Visit Provider Obstetrics & Gynecology
DX: N92.6 Irregular menstruation, unspecified (principal)
CPT/HCPCS: 36415; 84702

== ENCOUNTER → 2024-08-19 12:16 | Outpatient (CLI) | payer OTHER, SELFPAY ==
--- NOTE | ~2024-08-19 | XR_ITS ---
Clinical Indication: Cough PA and lateral views of the chest: Comparison: 10/27/2015 Findings: The lungs are clear, without evidence of focal consolidation or pleural effusion. Cardiome diastinal silhouette is within normal limits. Bones and soft tissues are unremarkable. Impression: Normal chest. Reviewed, dictated and finalized at [facility]. Impression: Normal chest.
== END ==
LOC: EXPCRAD 12:20
PROVIDERS: PCP Nurse Practitioner Family; Visit Provider Nurse Practitioner Family
DX: R05.1 Acute cough (principal)
CPT/HCPCS: 71046

== ENCOUNTER 2024-09-04 10:00 | Outpatient (RCR) | payer OTHER, SELFPAY ==
--- NOTE | 2024-08-04 10:35 | OPREHPOC ---
Outpatient Therapy Plan of Care This is a Multidisciplinary Plan of Care that may contain components documented by all disciplines (PT, OT, and ST.) PT Problem 1 PT Problem #1 Knowledge Deficit PT Goal 1 Goal / Goal Update 1. Patient will perform independent HEP Target Visit 5 PT Problem 2 PT Problem #2 Pain PT Goal 1 Goal / Goal Update 1. Patient will report pain with BM no higher than 2/10 Target Visit 5 PT Problem 3 PT Problem #3 Impaired Functional ADLs PT Goal 1 Goal / Goal Update 1. Patient will report no straining or needing to sit for more than 10 minutes for BM 2. Patient will be able to do typical activities without urinary incontinence for at least 2 weeks Target Visit 5 PT Problem 4 PT Problem #4 Impaired Strength PT Goal 1 Goal / Goal Update 1. Improve pelvic floor strength to 4/5 to support prolapse and decrease incontinence 2. Improve pelvic floor endurance to 10 seconds to support prolapse and decrease incontinence Target Visit 5
--- NOTE | 2024-08-04 10:35 | PTOPEVAL1 ---
Assessment and note entered by Tash Caelro DPT Evaluation Information Assessment Status Evaluation Diagnosis n81.4 ICD-10 Condition Codes (PT) R10.2,Stress incontinence N39.3 Subjective Information Pt reports since starting a weight loss medication (phentermine, started taking it late in March) she has been having a lot of new constipation and now has a bladder prolapse. Has tried fiber gummies and miralax. Voids 5-6 times a day. Urinary incontinence with bending over, coughing, or sneezing 3-4 times a week. Volume is a few drops at a time. Incontinence started around the same time as the constipation. Can hold urge to void 20 minutes. Sometimes has burning with urination and has had recurrent UTI's, is noticing more burning now but recent urine culture was negative. Was going 5-10 days in between BM and having to sit and push for up to an hour until using miralax and fiber which has improved to 1-2 times a day. Now has to sit and push for up to 20 minutes. Still has pain with BM, 9-10/10 pain and 1/10 lowest with relaxing at home. Does not think she is experiencing fecal incontinence. Pt has been 3 times, 2 vaginal deliveries. Tearing with her first in 2017, second delivery in 2021. No other PATIENT SERVICES MANAGER or b/b history. Pt has also experienced recent pain and bleeding with sexual activity. Diet: typically eats first meal around 2 and then a small dinner. Minimal snacking throughout the day. Drinks water, juice, milk, occasional tea but not daily. Patient goal: not have pain Return to MD is not scheduled. Reported Pain Level Pain Score 1: Self Report Assessment PT Clinical Summary The patient is presenting to skilled therapy with a several month history of constipation, pelvic pain, urinary incontinence and pelvic organ prolapse. She presents with decreased pelvic floor strength and endurance as well as decreased hip and core strength. These impairments are contributing to prolapse symptoms and difficulty with BM and performing other typical activities. She will highly benefit from therapy to address her impairments in order to reduce pain and incontinence and improve overall function. Plan of Care Interventions Electrical Stimulation,Hot Pack/Cold Pack,Manual Therapy,Neuro Re-education,Patient/Caregiver Education,Therapeutic Activities,Therapeutic Exercise PT Services Indicated Yes Treatment Frequency and 1 time a week for 5 visits Duration These treatments will address the objective and functional deficits as defined above. The patient will be advanced safely and appropriately in order for the patient to progress towards his/her prior level of function. Additional exercises will be introduced and as well as a comprehensive home exercise program upon discharge, if needed, ?to ensure carryover of functional gains achieved in the clinic. This treatment plan has been reviewed and agreement upon by the patient.
--- NOTE | 2024-08-28 10:55 | PCPTNOTE ---
Pt did not show up for appointment 08/28/24. When called, patient stated she forgot due to needing to get in to her OB to get her IUD removed. Plans to be at her next visit.
--- NOTE | 2024-09-04 10:30 | OPREHPOC ---
Outpatient Therapy Plan of Care This is a Multidisciplinary Plan of Care that may contain components documented by all disciplines (PT, OT, and ST.) PT Problem 1 PT Problem #1 Knowledge Deficit PT Goal 1 Goal / Goal Update 1. Patient will perform independent HEP Target Visit 5 Progress Met PT Problem 2 PT Problem #2 Pain PT Goal 1 Goal / Goal Update 1. Patient will report pain with BM no higher than 2/10 Target Visit 5 Progress Met PT Problem 3 PT Problem #3 Impaired Functional ADLs PT Goal 1 Goal / Goal Update 1. Patient will report no straining or needing to sit for more than 10 minutes for BM 2. Patient will be able to do typical activities without urinary incontinence for at least 2 weeks update 09/04/24 1. met 2. none in 1 week Target Visit 8 Progress Partially Met PT Problem 4 PT Problem #4 Impaired Strength PT Goal 1 Goal / Goal Update 1. Improve pelvic floor strength to 4/5 to support prolapse and decrease incontinence 2. Improve pelvic floor endurance to 10 seconds to support prolapse and decrease incontinence update 09/04/24 1. not met 2. improved to 8 seconds Target Visit 5 Progress Partially Met
--- NOTE | 2024-09-04 10:30 | PTOPPROG ---
Assessment and note entered by Tash Calero DPT Evaluation Information Assessment Status Progress Diagnosis n81.4 ICD-10 Condition Codes (PT) R10.2,Stress incontinence N39.3 Subjective Information Pt reports she is getting better with therapy and feels stronger. No incontinence over the last week . BM 3-4 times over the last week. No pain with BM and is not sitting more than 10 minutes at a time . Assessment PT Clinical Summary The patient has made good progress in therapy and reports no incontinence or pain over the last week , and has had BM 3-4 times in the last week. She demonstrates improved hip and core strength and improved pelvic floor endurance. She also reports less pain with pelvic floor palpation. Due to her progress, she will benefit from continued therapy to further address strength in order to fully eliminate symptoms of prolapse and restore full function. Plan of Care Interventions Electrical Stimulation,Hot Pack/Cold Pack,Manual Therapy,Neuro Re-education,Patient/Caregiver Education,Therapeutic Activities,Therapeutic Exercise PT Services Indicated Yes Treatment Frequency and 1 visit every other week for 3 visits Duration These treatments will address the objective and functional deficits as defined above. The patient will be advanced safely and appropriately in order for the patient to progress towards his/her prior level of function. Additional exercises will be introduced and as well as a comprehensive home exercise program upon discharge, if needed, ?to ensure carryover of functional gains achieved in the clinic. This treatment plan has been reviewed and agreement upon by the patient.
--- NOTE | 2024-09-25 08:16 | PCPTNOTE ---
Patient called to cancel appointment 09/25/24 due to illness.
--- NOTE | 2024-10-09 11:20 | PCPTNOTE ---
Patient no showed appointment 10/09/24. Left voicemail for patient to reschedule.
--- NOTE | 2024-10-23 11:22 | PTOPDC ---
Assessment and note entered by Tash Calero DPT Evaluation Information Assessment Status Discharge - Pt Not Present Diagnosis n81.4 ICD-10 Condition Codes (PT) Pelvic and perineal pain R10.2,Stress incontinence N39.3 Subjective Information - Assessment PT Clinical Summary Patient has not attended therapy since 09/04/24 and no showed re-evaluation scheduled this date. Her case will be discharged at this time. Plan of Care PT Services Indicated No
== END 2024-10-23 14:18 | disposition home or self-care (01) ==
LOC: ANHPT 10:00
PROVIDERS: PCP Internal Medicine; Visit Provider Obstetrics & Gynecology
DX: N81.4 Uterovaginal prolapse, unspecified (principal)
CPT/HCPCS: 97110; 97112; 97140; 97161; 97530

== ENCOUNTER 2025-01-12 14:22 | Emergency (ER) | payer OTHER, SELFPAY ==
--- NOTE | ~2025-01-12 | XR_ITS ---
EXAMINATION: XR chest 2V DATE: 01/12/2025 14:57 INDICATION: Chest pain. TECHNIQUE: Frontal and lateral views of the chest were obtained. COMPARISON: Chest 2 views 08/19/2024 FINDINGS: There is no pneumonia, pleural effusion, or pneumothorax. The heart size is normal. IMPRESSION: 1. No acute cardiopulmonary disease. Reviewed, dictated and finalized at location A.
--- NOTE | 2025-01-12 14:24 | ECG_ITS ---
Test Date: 2025-01-12 14:27:41 Measurements Intervals [place] Rate: 106 P: 83 NE: 99 QRS: 36 QRSD: 94 T: 30 QT: 293 QTc: 390 Interpretive Statements SINUS TACHYCARDIA WITH SHORT NE INTERVAL INCOMPLETE RIGHT BUNDLE BRANCH BLOCK [90+ ms QRS DURATION, TERMINAL R IN V1/V2, 40+ ms S IN I/aVL/V4/V5/V6] No previous ECG available for comparison Electronically Signed On 01-12-2025 16:48:33 CDT by Jon Turpin M.D.
--- NOTE | 2025-01-12 14:31 | ED_ITS ---
HPI - Arrhythmia/Palpitations General Chief Complaint: Arrhythmia/Palpitations <Ana Marks APRN - Last Filed: 01/12/25 14:34> Stated Complaint: Palpitations and shortness of breath <Ana Marks APRN - Last Filed: 01/12/25 14:34> Time Seen by Provider: 01/12/25 15:26 <Ana Marks APRN - Last Filed: 01/12/25 14:34> Focused HPI: Patient is a 24-year-old female who presents to the ER with a 3 day history palpitations, fatigue, shortness of breath. She reports she has no cardiac history, does not take in much caffeine, and has no thyroid history. Patient reports she had an upper respiratory infection for the past 2 weeks and recently completed a 10 day course of doxycycline. She reports she continues to have low-grade fevers and her PCP is unsure this is related to her palpitations today. On patient's chart it is noted that she takes phentermine. Patient denies any other medical history related to this ER visit. GENERAL: Well-appearing, well-nourished, and in no acute distress. HEAD: Normocephalic, atraumatic. CHEST: Clear to auscultation. ?No respiratory distress. HEART: Tachycardia, regular rhythm NEURO: ?Alert and oriented x3. Patient screened in triage and initial orders placed.? ?Additional care and disposition to be based upon?diagnostic testing and treatment. <Ana Marks APRN - Last Filed: 01/12/25 14:34> History of Present Illness HPI narrative: Agree with the HPI above. <Matt Newby MD - Last Filed: 01/12/25 19:07> Related Data Home Medications: Home Medications ?Medication ?Instructions ?Recorded ?Confirmed ?Last Taken ?Type ibuprofen 800 mg tablet 800 mg PO 06/03/24 08/28/24 Unknown History phentermine 37.5 mg tablet 37.5 mg PO 06/03/24 08/28/24 Unknown History <Ana Marks APRN - Last Filed: 01/12/25 14:34> Allergies/Adverse Reactions: Allergies Allergy/AdvReac Type Severity Reaction Status Date / Time codeine Allergy Mild Rash Verified 01/12/25 14:23 cephalexin Allergy Severe Rash Uncoded 01/12/25 14:23 <Ana Marks APRN - Last Filed: 01/12/25 14:34> Review of Systems 2 Review of Systems: As reviewed above in HPI <Matt Newby MD - Last Filed: 01/12/25 19:07> [facility] Past Medical History Medical History: Medical History Encounter for IUD removal Encounter for gynecological examination Anxiety Scoliosis Chlamydia <Ana Marks APRN - Last Filed: 01/12/25 14:34> Surgical History Surgical History: Surgical History H/O adenoidectomy History of tonsillectomy <Ana Marks APRN - Last Filed: 01/12/25 14:34> Family History Family History: Family History Mother No pertinent past medical history Father Cerebrovascular accident <Ana Marks APRN - Last Filed: 01/12/25 14:34> Social History Social History: Social History Smoking status: Never smoker Alcohol intake: never Substance use: never Substance use type: does not use Do You Feel Safe in your Home?: Yes Lack of Transportation: No Lack of Food: Never True Current Housing: I Have Housing Concerned About Future Housing: No Difficulty Paying Gas/Electric Bills: No Difficulty Paying for Meds: No Currently Unemployed: No Education: High School Diploma/GED Difficulty w/ Childcare or Family Care: No Living arrangements: with family Occupation/Education: occupation Additional occupation/education comments: [employer] Gender identity (if verbalized by the patient): Female Sexual Orientation (if Verbalized by the Patient): Straight or Heterosexual Spiritual care concerns: No <Ana Marks APRN - Last Filed: 01/12/25 14:34> Exam 2 Narrative: GENERAL: [Well-appearing, well-nourished, and in no acute distress.] HEAD: [Normocephalic, atraumatic.] EYES: [PERRLA and EOMI.] ENT: Nares clear, no rhinorrhea or epistaxis. Mucous membranes moist. NECK: Supple. CHEST: [Clear to auscultation. No respiratory distress.] HEART: Mildly tachycardic, regular rhythm. No murmur heard. [Normal peripheral pulses.] ABDOMEN: [Soft, nondistended], [nontender], [No rigidity or guarding] EXTREMITIES: Normal range of motion. [No edema.] SKIN: Warm, dry, no rash. NEURO: [No focal deficits]. Alert and oriented [x3.] PSYCH: [Normal mood and affect.] <Mtat Newby MD - Last Filed: 01/12/25 19:07> Course Vital Signs Vital signs: Vital Signs Temperature 36.4 C L 01/12/25 14:32 Pulse Rate 113 H 01/12/25 14:32 Respiratory Rate 16 01/12/25 14:32 Blood Pressure 123/67 01/12/25 14:32 Pulse Oximetry 99 01/12/25 14:32 Oxygen Delivery Room Air 01/12/25 14:32 Temperature 36.4 C L 01/12/25 14:32 Pulse Rate 111 H 01/12/25 16:23 Respiratory Rate 20 01/12/25 16:23 Blood Pressure 126/82 01/12/25 16:23 Pulse Oximetry 100 01/12/25 16:23 Oxygen Delivery Room Air 01/12/25 14:32 <Ana Marks APRN - Last Filed: 01/12/25 14:34> Vital Signs Temperature 36.4 C L 01/12/25 14:32 Pulse Rate 113 H 01/12/25 14:32 Respiratory Rate 16 01/12/25 14:32 Blood Pressure 123/67 01/12/25 14:32 Pulse Oximetry 99 01/12/25 14:32 Oxygen Delivery Room Air 01/12/25 14:32 Temperature 36.4 C L 01/12/25 14:32 Pulse Rate 111 H 01/12/25 16:23 Respiratory Rate 20 01/12/25 16:23 Blood Pressure 126/82 01/12/25 16:23 Pulse Oximetry 100 01/12/25 16:23 Oxygen Delivery Room Air 01/12/25 14:32 <Matt Newby MD - Last Filed: 01/12/25 19:07> MDM - Arrhythmia/Palpitations MDM Narrative Medical decision making narrative: 24-year-old otherwise healthy female presenting with palpitations sensation for last 3 days. Previously endorsed a dull achy chest pain that is now resolved. Recently treated with doxycycline for upper respiratory infection. Denies any cough, shortness of breath, present chest pain, back pain, abdominal pain, nausea or vomiting. No headache or vision changes. Otherwise was in her normal state of health. Intermittent symptoms for 3 days. Mildly tachycardic but no other vital concerns on examination. Considerations presently for electrolyte disturbances, infectious pathology, less likely pneumonia pneumothorax. Low suspicion cardiac in origin such as electrical activity and ectopy versus arrhythmia and less suspicious for acute occlusive event such as ACS. Cardiac workup was ordered, D-dimer obtained, CBC, CMP. EKG and chest x-ray ordered. Workup shows no leukocytosis or anemia. Normal platelet count. Normal PT, PTT and D-dimer. Chemistry panel within normal limits, normal renal and hepatic function. Normal glucose. Negative troponin. Urinalysis without infection. Negative test. Negative drug screen. Chest x-ray without any concerning findings. EKG with sinus tachycardia 106, no ST segment elevations, depressions or inversions. QTC 390, QRS 94. AL interval 99. No previous EKG for comparison. Patient was re-evaluated and placed on tour sales representative. Observed here in the ED. No recurrence of any chest pain and she was in normal sinus. At several readings with a pulse in the lower 90s which is reassuring. Holter monitor was set up and she will follow up on outpatient basis with event monitor after 7 days with Cardiology referral. Patient's questions were answered she was safe for discharge. <Matt Newby MD - Last Filed: 01/12/25 19:07> Medical Records Attestation: I reviewed the patient's medical records. <Matt Newby MD - Last Filed: 01/12/25 19:07> Lab Data Attestation: I reviewed the patient's lab results. <Matt Newby MD - Last Filed: 01/12/25 19:07> Result diagrams: 01/12/25 14:41 01/12/25 14:41 <Ana Marks APRN - Last Filed: 01/12/25 14:34> Labs: Lab Results 01/12/25 01/12/25 01/12/25 Range/Units 14:41 15:35 15:57 WBC 5.3 (4.5-10.0) K/mm3 RBC 4.32 (4.2-5.4) M/mm3 Hgb 12.0 D (12.0-15.0) g/dL Hct 37.4 (37.0-47.0) % MCV 86.6 (80-100) fl MCH 27.8 (26-34) pg MCHC 32.1 (32-36) g/dl RDW 11.9 (11.5-14.5) % Plt Count 313 (150-375) k/mm3 MPV 9.9 (7.4-10.4) fl Immature Gran % (Auto) 0.2 (0-0.5) % Neut % (Auto) 58.7 (45.5-73.1) % Lymph % (Auto) 29.2 (18.3-44.2) % Kimball % (Auto) 6.0 (2.6-8.5) % Eos % (Auto) 5.3 H (0-4.4) % Baso % (Auto) 0.6 (0.2-1.2) % Lymph # (Auto) 1.55 (0.9-3.2) K/mm3 Kimball # (Auto) 0.3 (0.1-0.6) K/mm3 Eos # (Auto) 0.3 (0-0.3) K/mm3 Baso # (Auto) 0.0 (0.0-0.1) K/mm3 Abs Immat Gran (auto) 0.01 (0.00-0.031) K/mm3 Absolute Neuts (auto) 3.1 (1.3-6.7) K/mm3 Absolute Nucleated RBC 0.000 (0.0-0.012) K/mm3 Nucleated RBC % 0.0 (0.0-0.2) % PT 12.7 (11.1-14.7) Seconds INR 0.9 APTT 27.2 (22.3-36.8) Seconds D-Dimer < 0.27 (<0.48) ug/mL Sodium 140 (137-145) mmol/L Potassium 4.1 (3.4-5.0) mmol/L Chloride 105 (98-107) mmol/L Carbon Dioxide 24 (22-30) mmol/L Anion Gap 11 (4-12) mmol/L BUN 12 D (7-17) mg/dL Creatinine 0.68 L (0.7-1.0) mg/dL Estim Creat Clear Calc 110 ml/min Estimated GFR > 60 (59 - ) Glucose 134 H (65-110) mg/dL Calcium 9.3 (8.4-10.2) mg/dL Total Bilirubin 0.4 (0.2-1.3) mg/dL AST 20 (14-36) U/L ALT 16 (6-35) U/L Alkaline Phosphatase 70 (38-126) U/L Troponin I < 0.012 (0.000-0.034) ng/mL Total Protein 8.0 (6.3-8.2) g/dL Albumin 4.5 (3.5-5.1) g/dL Lipase 58 (23-300) U/L Urine Color Yellow (Yellow) Urine Appearance Clear (Clear) Urine pH 7.0 (5.0-9.0) Ur Specific [place] 1.016 (1.001-1.035) Urine Protein Negative (Negative) mg/dL Urine Glucose (UA) Negative (Negative) mg/dL Urine Ketones Negative (Negative) mg/dL Ur Blood (Man) Negative (Negative) Urine Nitrate Negative (Negative) Urine Bilirubin Negative (Negative) Urine Urobilinogen 0.2 (<2.0) mg/dL Leukocyte Esterase Rfl Trace H (Negative) ANOOP/UL Urine RBC 3-5 H (0-2) /hpf Urine WBC 0-5 (0-3) /hpf Ur Squamous Epith Cells None seen (Few) /hpf Urine Bacteria None seen /hpf Urine Casts 0-2 POC Urine HCG, Qual Negative (Negative) Urine Opiates Screen Negative (Negative) Urine Methadone Screen Negative (Negative) Ur Barbiturates Screen Negative (Negative) Ur Phencyclidine Scrn Negative (Negative) Ur Amphetamine Screen Negative (Negative) U Benzodiazepines Scrn Negative (Negative) Urine Cocaine Screen Negative (Negative) U Cannabinoids Screen Negative (Negative) <Ana Kc Kendrick, C++ QUANT DEVELOPER - Last Filed: 01/12/25 14:34> Lab Results 01/12/25 01/12/25 01/12/25 Range/Units 14:41 15:35 15:57 WBC 5.3 (4.5-10.0) K/mm3 RBC 4.32 (4.2-5.4) M/mm3 Hgb 12.0 D (12.0-15.0) g/dL Hct 37.4 (37.0-47.0) % MCV 86.6 (80-100) fl MCH 27.8 (26-34) pg MCHC 32.1 (32-36) g/dl RDW 11.9 (11.5-14.5) % Plt Count 313 (150-375) k/mm3 MPV 9.9 (7.4-10.4) fl Immature Gran % (Auto) 0.2 (0-0.5) % Neut % (Auto) 58.7 (45.5-73.1) % Lymph % (Auto) 29.2 (18.3-44.2) % Kimball % (Auto) 6.0 (2.6-8.5) % Eos % (Auto) 5.3 H (0-4.4) % Baso % (Auto) 0.6 (0.2-1.2) % Lymph # (Auto) 1.55 (0.9-3.2) K/mm3 Kimball # (Auto) 0.3 (0.1-0.6) K/mm3 Eos # (Auto) 0.3 (0-0.3) K/mm3 Baso # (Auto) 0.0 (0.0-0.1) K/mm3 Abs Immat Gran (auto) 0.01 (0.00-0.031) K/mm3 Absolute Neuts (auto) 3.1 (1.3-6.7) K/mm3 Absolute Nucleated RBC 0.000 (0.0-0.012) K/mm3 Nucleated RBC % 0.0 (0.0-0.2) % PT 12.7 (11.1-14.7) Seconds INR 0.9 APTT 27.2 (22.3-36.8) Seconds D-Dimer < 0.27 (<0.48) ug/mL Sodium 140 (137-145) mmol/L Potassium 4.1 (3.4-5.0) mmol/L Chloride 105 (98-107) mmol/L Carbon Dioxide 24 (22-30) mmol/L Anion Gap 11 (4-12) mmol/L BUN 12 D (7-17) mg/dL Creatinine 0.68 L (0.7-1.0) mg/dL Estim Creat Clear Calc 110 ml/min Estimated GFR > 60 (59 - ) Glucose 134 H (65-110) mg/dL Calcium 9.3 (8.4-10.2) mg/dL Total Bilirubin 0.4 (0.2-1.3) mg/dL AST 20 (14-36) U/L ALT 16 (6-35) U/L Alkaline Phosphatase 70 (38-126) U/L Troponin I < 0.012 (0.000-0.034) ng/mL Total Protein 8.0 (6.3-8.2) g/dL Albumin 4.5 (3.5-5.1) g/dL Lipase 58 (23-300) U/L Urine Color Yellow (Yellow) Urine Appearance Clear (Clear) Urine pH 7.0 (5.0-9.0) Ur Specific [place] 1.016 (1.001-1.035) Urine Protein Negative (Negative) mg/dL Urine Glucose (UA) Negative (Negative) mg/dL Urine Ketones Negative (Negative) mg/dL Ur Blood (Man) Negative (Negative) Urine Nitrate Negative (Negative) Urine Bilirubin Negative (Negative) Urine Urobilinogen 0.2 (<2.0) mg/dL Leukocyte Esterase Rfl Trace H (Negative) ANOOP/UL Urine RBC 3-5 H (0-2) /hpf Urine WBC 0-5 (0-3) /hpf Ur Squamous Epith Cells None seen (Few) /hpf Urine Bacteria None seen /hpf Urine Casts 0-2 POC Urine HCG, Qual Negative (Negative) Urine Opiates Screen Negative (Negative) Urine Methadone Screen Negative (Negative) Ur Barbiturates Screen Negative (Negative) Ur Phencyclidine Scrn Negative (Negative) Ur Amphetamine Screen Negative (Negative) U Benzodiazepines Scrn Negative (Negative) Urine Cocaine Screen Negative (Negative) U Cannabinoids Screen Negative (Negative) <Matt Newby MD - Last Filed: 01/12/25 19:07> Imaging Data Attestation: I personally reviewed and interpreted this imaging study as follows: < Matt Newby MD - Last Filed: 01/12/25 19:07> My impression: Impressions Chest X-Ray 01/12/25 14:58 IMPRESSION: 1. No acute cardiopulmonary disease. <Matt Nebwy MD - Last Filed: 01/12/25 19:07> Discharge Plan Discharge Clinical Impression: Heart palpitations <Ana Marks APRN - Last Filed: 01/12/25 14:34> Patient Disposition: Home, Self-Care <Ana Marks APRN - Last Filed: 01/12/25 14:34> Condition: Stable <Ana Marks APRN - Last Filed: 01/12/25 14:34> Instructions: Antibiotic Form <Ana Marks APRN - Last Filed: 01/12/25 14:34> Additional Instructions: Your cardiac workup appears very reassuring, no signs of any ongoing heart damage, no signs of blood clot, no pneumonia or infection. Normal electrolytes. We will such up with a Holter monitor and have you follow-up with cardiology for this is this is a persistent issue. Return with any new or worsening concerns. <Ana Marks APRN - Last Filed: 01/12/25 14:34> Patient Language: Portuguese <Ana Marks APRN - Last Filed: 01/12/25 14:34> Prescriptions: No Action ibuprofen 800 mg tablet 800 mg PO phentermine 37.5 mg tablet 37.5 mg PO etonogestrel-ethinyl estradiol [NuvaRing] 0.12-0.015 mg/24 hr ring 1 vag ring vaginal ONCE Qty: 3 3RF Rx Instructions: place in the vagina for 21 days of a 28 days cycle <Ana Marks APRN - Last Filed: 01/12/25 14:34> Follow-up/Referrals: Shun,YELENA Ba [Primary Care Provider] - <Ana Marks APRN - Last Filed: 01/12/25 14:34> Time of Disposition: 16:17 <Ana Marks APRN - Last Filed: 01/12/25 14:34> 16:17 <Matt Newby MD - Last Filed: 01/12/25 19:07>
[2025-01-12 14:32] VITALS: BP 123/67; PULSE 113; RESP 16; TEMP 36.4; O2SAT 99
[2025-01-12 14:53] LABS: Basophils Percent Auto 0.6 % (0.2-1.2); Eosinophils Absolute Auto 0.3 K/mm3 (0-0.3); Eosinophils Percent Auto 5.3 % (0-4.4); Hematocrit 37.4 % (37.0-47.0); Immature Granulocyte Absolute 0.01 K/mm3 (0.00-0.031); Immature Granulocyte Percent A 0.2 % (0-0.5); Lymphocytes Absolute Auto 1.55 K/mm3 (0.9-3.2); Lymphocytes Percent Auto 29.2 % (18.3-44.2); Mean Corpuscular HGB Conc 32.1 g/dl (32-36); Mean Corpuscular Hemoglobin 27.8 pg (26-34); Mean Corpuscular Volume 86.6 fl (80-100); Mean Platelet Volume 9.9 fl (7.4-10.4); Monocytes Absolute Auto 0.3 K/mm3 (0.1-0.6); Neutrophils Absolute Auto 3.1 K/mm3 (1.3-6.7); Neutrophils Percent Auto 58.7 % (45.5-73.1); Platelet Count Result 313 k/mm3 (150-375); Red Blood Count 4.32 M/mm3 (4.2-5.4); Red Cell Distribution Width 11.9 % (11.5-14.5); White Blood Count 5.3 K/mm3 (4.5-10.0)
[2025-01-12 14:57] LABS: Alanine Aminotransferase 16 U/L (6-35); Albumin Level 4.5 g/dL (3.5-5.1); Alkaline Phosphatase 70 U/L (38-126); Anion Gap 11 mmol/L (4-12); Aspartate Amino Transferase 20 U/L (14-36); Bilirubin,Total 0.4 mg/dL (0.2-1.3); Blood Urea Nitrogen 12 mg/dL (7-17); Calcium 9.3 mg/dL (8.4-10.2); Carbon Dioxide 24 mmol/L (22-30); Chloride 105 mmol/L (98-107); Estimated CRCL calculation 110 ml/min; Estimated Glomerular Filt Rate > 60; Glucose 134 mg/dL (65-110); Lipase 58 U/L (23-300); Potassium 4.1 mmol/L (3.4-5.0); Sodium 140 mmol/L (137-145)
[2025-01-12 14:59] LABS: INR 0.9; Prothrombin Time 12.7 Seconds (11.1-14.7)
[2025-01-12 15:00] LABS: Partial Thromboplastin Time 27.2 Seconds (22.3-36.8)
[2025-01-12 15:09] LABS: Troponin I < 0.012 ng/mL (0.000-0.034)
[2025-01-12 15:23] LABS: D Dimer < 0.27 ug/mL (<0.48)
--- NOTE | 2025-01-12 15:35 | PC.NURSE ---
Pt presents to ED c/o palpitations, and SOB, onset 3 days. Pt tachycardiac HR 105-110, placed on bus monitor. denies cardiac history.
[2025-01-12 15:46] LABS: Add Urine Microscopic? YES; Appearance Urine Clear (Clear); Bacteria Urine None Seen /hpf; Bilirubin Urine Negative (Negative); Blood Urine Negative (Negative); Color Urine Yellow (Yellow); Glucose Urine UA Negative (Negative); Ketones Urine Negative (Negative); Leukocyte Esterase Ur Trace LEU/UL (Negative); Nitrate Urine Negative (Negative); Non Pathogenic Casts 0-2; Protein Urine Negative (Negative); Specific Grav Ur 1.016 (1.001-1.035); Squamous Epithelial Cell Urine None Seen /hpf (Few); Urobilinogen Urine 0.2 mg/dL (<2.0); WBC Urine 0-5 /hpf (0-3)
[2025-01-12 15:59] LABS: BEDSIDEPREGUCG Negative (Negative)
[2025-01-12 16:00] LABS: Amphetamine Screen Urine Negative (Negative); Barbiturate Screen Urine Negative (Negative); Benzodiazepines Screen Urine Negative (Negative); Cannabinoid Screen Urine Negative (Negative); Cocaine Screen Urine Negative (Negative); Methadone Screen Urine Negative (Negative); Opiate Screen Urine Negative (Negative); Phencyclidine Screen Urine Negative (Negative)
[2025-01-12 16:23] VITALS: BP 126/82; PULSE 111; RESP 20; O2SAT 100
--- OUTSIDE RECORDS SUMMARY | 2025-01-12 16:49 | XMS_ITS | Encounter Summary ---
Author Organization [facility] Healthcare Address [address] [place] [address] Care Team Providers Care Lapel Baster Name Role Phone Jesenia Hoffmann ELECTRONIC GAMING DEVICE SUPERVISOR Primary Care Provider [phone] Reason for Visit * Reason Onset Date Comments Shortness of Breath 01/12/2025 Palpitations 01/12/2025 Encounter Details Date Type Department Care Team (Late st Contact Info) Description 01/12/2025 Nurse Triage [facility] Internal Medicine at [place] [address] [place] [address] Jesenia Hoffmann, ELECTRONIC GAMING DEVICE SUPERVISOR [address] [place], [place] [id number] Social History Tobacco Use Types Packs/Day Years Used Date Smoking Tobacco: Never Smokeless Tobacco: Never PHQ-2 Answer Date Recorded PHQ-2 Total Score (If total score is 3 or more points, staff should administer the PHQ-9) 0 12/22/2024 Comments Unknown Sex and Gender Information Value Date Recorded Sex Assigned at Not on file Legal Sex Female 8:02 AM CDT Gender Identity Female 08/11/2023 5:30 PM CDT Sexual Orientation Straight 08/11/2023 5: 30 PM CDT documented as of this encounter Miscellaneous Notes * Telephone Encounter - Gaby Mcdonald RN - 01/12/2025 12:39 PM CDT Reason for Disposition New or worsened shortness of breath with activity (dyspnea on exertion) Protocols used: Heart Rate and Heartbeat [id number] Pt reports palpitations SHERIDAN, hot flashes with any exertions. She states she ahs been feeling fatigued. She denies current symptoms/ Pt denies chest pain or current symptoms. She had appt today that was cancelled. Disposition per guideline: Care Advice/education/call back instruction given: call transferred to back line. ELECTRONIC GAMING DEVICE SUPERVISOR not in and pt was left a message to call back. * Telephone Encounter - Gaby Mcdonald RN - 01/12/2025 12:27 PM CDT Regarding: heart palpitations and short of breath ----- Message from Meme Licona sent at 01/12/2025 12:24 PM CDT ----- Symptom Based Call Chief Complaint(s): heart palpitations and short of breath Duration: 2 or 3 days now What type of symptom(s) is the patient experiencing? Red Flag. Is the patient concerned they are experiencing a medical emergency requiring an ambulance? No Additional Comments: Patient says she feels like her heart is beating out of her chest. Then she does get short of breath. She also has been running a low grade temp and has been very fatigued. Please call the [phone] number. It is her 's however, her phone is not working correctly. Shewill be the one to to answer. Does message need to be routed? Yes-Action Needed documented in this encounter Plan of Treatment Not on file documented as of this encounter Visit Diagnoses Not on filedocumented in this encounter Care Teams Lapel Baster Relationship Specialty Start Date End Date Jesenia Hoffmann NP [address] [place] [address] PCP - General Internal Medicine 12/25/22 documented as of this encounter
--- OUTSIDE RECORDS SUMMARY | 2025-01-12 16:49 | XMS_ITS | Encounter Summary ---
Author Organization [facility] Healthcare Address [address] [place] [id number] Care Team Providers Care Forestry Faculty Member Name Role Phone Jesenia Hoffmann CORPORATE ETHICS OFFICER Primary Care Provider [phone] Encounter Details Date Type Department Care Team (Late st Contact Info) Description 01/12/[address] [facility] Family Medicine [address] [place] [address] Jesenia Hoffmann, CORPORATE ETHICS OFFICER [address] [place] [address] Social History Tobacco Use Types Packs/Day Years [...] encounter Miscellaneous Notes * Telephone Encounter - Flores Reyes MA - 01/12/2025 12:49 PM CDT Called spoke with patient will go to Urgent care. * Telephone Encounter - Flores Reyes MA - 01/12/2025 12:13 PM CDT Left message to call office concerning complaints. * Telephone Encounter - Jesenia Hoffmann NP - 01/12/2025 12:09 PM CDT Send her to [facility] in [place]. I think they can do xrays. This is a UC. For the fatigue and anxiety she will need to be seen * Telephone Encounter - Flores Reyes MA - 01/12/2025 9:14 AM CDT Called patient to change appointment due to provider out. C/O fever off and on since November anxiety heart palpitations and general fatigue. I rescheduled appointment and told patient if her symptoms get worse she should go to Emergency room. documented in this encounter Plan of Treatment Not on file documented as of this encounter Visit Diagnoses Not on filedocumented in this encounter Care Teams Forestry Faculty Member Relationship Specialty Start Date End Date Jesenia Hoffmann NP [facility] [address] [place] [address] PCP - General Internal Medicine 12/25/22 documented as of this encounter
--- OUTSIDE RECORDS SUMMARY | 2025-01-12 16:49 | XMS_ITS | Referral Summary ---
Author Organization [facility] Address [address] [place] [address] Phone Care Team Providers Care Metrology Technician Name Role Phone Jesenia Hoffmann LEATHER GOODS ASSEMBLER Primary Care Provider [phone] Encounters Date Type Department Care Team Description 01/12/2025 Nurse Triage [facility] Medical [facility] Internal Medicine at [address] [place] [address] Jesenia Hoffmann, LEATHER GOODS ASSEMBLER 01/12/2025 Telephone [facility] Family Medicine [address] [place] [address] [address] [place] [address] Jesenia Hoffmann LEATHER GOODS ASSEMBLER 12/22/2024 7:30 AM SEWING MACHINE MAINTENANCE MECHANIC Office Visit [facility] Medical [facility] Internal Medicine at [address] [place] [address] Jesenia Hoffmann, YELENA Sore throat (Primary Dx); BMI 31.0-31.9,adult; Obesity (BMI 30-39.9) 12/02/2024 10:30 AM SEWING MACHINE MAINTENANCE MECHANIC Office Visit [facility] Internal Medicine at [address] [place] [address] Jesenia Hoffmann, YELENA Cough, unspecified type (Primary Dx); BMI 31.0-31.9,adult; Obesity (BMI 30-39.9) 10/23/2024 Telephone [facility] Internal Medicine at [address] [place] [address] Jesenia Hoffmann NP Medication Request from Last 3 Months Allergies Active Allergy Reactions Criticality Noted Date Comments Cephalexin Rash Medium 12/25/2022 Codeine Rash Medium 03/05/2017 Medications etonogestreL-eth inyl estradioL (NUVARING, ELURYNG) 0.12-0.015 mg/24 hr vaginal ring 4 Active phentermine 37.5 mg capsule Take 1 capsule (37.5 mg total) by mouth every morning 30 capsule 1 5 Active fexofenadine (JUSTICE) 180 mg tabletIndication s:Cough, unspecified type Take 1 tablet (180 mg total) by mouth daily as needed (allergies) 90 tablet 1 5 12/02/19 26 Active ibuprofen (ADVIL,MOTRIN) 800 mg tabletIndication s:Episodic cluster headache, not intractable TAKE 1 TABLET(800 MG) BY MOUTH THREE TIMES DAILY 90 tablet 4 12/23/19 25 Discontinue d(Therapy completed) doxycycline (VIBRAMYCIN) 100 mg capsuleIndicatio ns:Sore throat Take 1 tablet/caps ule (100 mg total) by mouth 2 (two) times a day for 10 days 20 tablet/capsu le 5 01/02/20 25 predniSONE (DELTASONE) 10 mg tabletIndication s:Sore throat Take 1 tablet (10 mg) by mouth 4 (four) times a day for 5 days 20 tablet 5 12/28/19 25 Active Problems Problem Noted Date Diagnosed Date Sore throat 12/22/2024 Acute ear pain, bilateral 09/30/2024 Cough 08/19/2024 Overview (08/19/2024): Have chest x-ray completed. We will notify you of the results. COVID and flu were negative. Take prednisone and Tessalon Perles as directed Episodic cluster headache, not intractable 04/01 Overview (04/01/2024): Motrin or ibuprofen as needed for headaches. Prescription sent to the pharmacy Chronic right-sided thoracic back pain 4 Dysuria 01/10/2024 Overview (01/10/2024): UA in the office does show UTI. Take Macrobid twice daily for 7 days. Notify the office without improvement of symptoms BMI 31.0-31.9,adult 04/16/2023 Assessment & Plan (09/30/2024 10:53 AM SEWING MACHINE MAINTENANCE MECHANIC): Discussed the patients BMI: The BMI is above average BMI management is complete. BMI follow-up includes: Nutrition Counseling and education provided Assessment & Plan (08/19/2024 11:37 AM CDT): Discussed the patients BMI: The BMI is above average BMI management is complete. BMI follow-up includes: Nutrition Counseling and education provided Assessment & Plan (07/20/2024 1:33 PM CDT): Discussed the patients BMI: The BMI is above average BMI management is complete. BMI follow-up includes: Nutrition Counseling and education provided Assessment & Plan (03/31/2024 2:33 PM CDT): Discussed the patients BMI: The BMI is above average BMI management is complete. BMI follow-up includes: Nutrition Counseling and education provided Assessment & Plan (01/10/2024 10:07 AM CDT): Discussed the patients BMI: The BMI is above average BMI management is complete. BMI follow-up includes: Nutrition Counseling and education provided Assessment & Plan (04/16/2023 8:43 AM CDT): Discussed the patients BMI: The BMI is above average BMI management is complete. BMI follow-up includes: Nutrition Counseling and education provided Right hand pain 04/16/2023 Obesity (BMI 30-39.9) 03/07/2023 Assessment & Plan (12/22/2024 7:51 AM SEWING MACHINE MAINTENANCE MECHANIC): Discussed the patients BMI: The BMI is above average BMI management is complete. BMI follow-up includes: Nutrition Counseling and education provided Assessment & Plan (12/02/2024 10:28 AM SEWING MACHINE MAINTENANCE MECHANIC): Discussed the patients BMI: The BMI is above average BMI management is complete. BMI follow-up includes: Nutrition Counseling and education provided Assessment & Plan (08/13/2023 1:08 PM CDT): Discussed the patients BMI: The BMI is above average BMI management is complete. BMI follow-up includes: Nutrition Counseling and education provided Weight gain 03/07/2023 Screening for cholesterol level 12/25/2022 Prediabetes 12/25/2022 Resolved Problems Problem Noted Date Diagnosed Date Resolved Date BMI 33.0-33.9,adult 03/07/2023 03/31/20 24 Assessment & Plan (03/07/2023 11:42 AM CDT): Discussed the patients BMI: The BMI is above average BMI management is complete. BMI follow-up includes: Nutrition Counseling and education provided Abnormal urine odor 03/07/2023 08/13/20 BMI 34.0-34.9,adult 12/25/2022 03/07/20 23 Immunizations Immunization Administration Dates Next Due DTaP 05/03/2005, 1,05/13/2001,03/10 HPV, Quadrivalent 11/28/2012,10/01/2012,05/28/20 12 Hep A, Pediatric 11/28/2012,05/28/2012 Hep B, Adolescent or Pediatric 03/02/2002,2000,2000 HiB 08/23/2005, 2,05/13/2001,03/10 Hib (PRP-OMP) 08/14/2001 IPV 08/23/2005, 2,08/14/2001,05/13,03/10/2001 Influenza, Quadrivalent, Spl it, Preservative Free, Intramuscular 08/13/2022,09/13/2018 Influenza, Trivalent, Preser vative Free, Intramuscular 12/10/2012 Influenza, Unspecified 12/02/2024(Deferr ed: Patient Refused),09/30/2024(Deferred: Patient Refused),08/19/2024(Deferred: Patient Refused),07/20/2024(Deferred: Patient Refused),01/10/2024(Deferred: Patient Refused),10/21/2023(Deferred: Patient Refused),10/21/2023(Deferred: Patient Refused),10/21/2023(Deferred: Patient Refused),10/21/2023(Deferred: Patient Refused),10/21/2023(Deferred: Patient Refused),10/21/2023(Deferred: Patient Refused),08/13/2023(Deferred: Patient Refused),10/21/2022(Deferred: Patient Refused),07/23/2022(Deferred: Patient Refused) MMR 08/23/2005,03/02/2002 Meningococcal Conjugate (Menveo) 01/01/2017 Meningococcal MCV4P (Menactra) 05/28/2012 Pneumococcal Conjugate 7-Valent 03/02/2002,08/14 Tdap 08/13/2022,09/13/2018,02/29/2012 Varicella 02/29/2012,03/02/2002 Social History Tobacco Use Types Packs/Day Years Used Date Smoking Tobacco: Never Smokeless Tobacco: Never Tobacco Cessation:Counseling Given: Not Answered PHQ-2 Answer Date Recorded PHQ-2 Total Score (If total score is 3 or more points, staff should administer the PHQ-9) 0 12/22/2024 Comments Unknown Sex and Gender Information Value Date Recorded Sex Assigned at Not on file Legal Sex Female 8:02 AM CDT Gender Identity Female 08/11/2023 5:30 PM CDT Sexual Orientation Straight 08/11/2023 5: 30 PM CDT Last Filed Vital Signs Vital Sign Reading Time Taken Comments Blood Pressure 122/68 09/30/2024 10:49 AM SEWING MACHINE MAINTENANCE MECHANIC Pulse 124 12/22/2024 7:50 AM SEWING MACHINE MAINTENANCE MECHANIC Temperature 37.8 C (100.1 F) 12/22/2024 7:50 AM SEWING MACHINE MAINTENANCE MECHANIC Respiratory Rate - - Oxygen Saturation 99% 12/22/2024 7:50 AM SEWING MACHINE MAINTENANCE MECHANIC Inhaled Oxygen Concentration - - Weight 79.4 kg (175 lb) 12/22/2024 7:50 AM SEWING MACHINE MAINTENANCE MECHANIC Height 160 cm (5' 3 ) 12/22/2024 7:50 AM SEWING MACHINE MAINTENANCE MECHANIC Body Mass Index 31 12/22/2024 7:50 AM SEWING MACHINE MAINTENANCE MECHANIC Plan of Treatment Not on file Procedures Procedure Name Priority Date/Time Associated Diagnosis Comments POC INFLUENZA A/B, COVID-19 ANTIGEN Routine 12/22/2024 8:02 AM SEWING MACHINE MAINTENANCE MECHANIC Sore throat POCT RAPID STREP Routine 12/22/2024 8:01 AM SEWING MACHINE MAINTENANCE MECHANIC Sore throat POC INFLUENZA A/B, COVID-19 ANTIGEN Routine 12/02/2024 11:12 AM SEWING MACHINE MAINTENANCE MECHANIC Cough, unspecified type from Last 3 Months Results * POC Influenza A/B, COVID-19 antigen (12/22/2024 8:02 AM SEWING MACHINE MAINTENANCE MECHANIC) Influenza A Ag, POC Negative Negative [facility] Influenza B Ag, POC Negative Negative [facility] COVID-19 Ag POC Presumptive Negative Presumptive Negative, Invalid [facility] Nasal 12/22/2024 8:02 AM SEWING MACHINE MAINTENANCE MECHANIC us Jesenia Hoffmann LEATHER GOODS ASSEMBLER POINT OF CARE TEST ORDERABLES Final Result Performing Organization Address City/[facility] Co de Phone Number [facility] [address] * POCT rapid strep A (12/22/2024 8:01 AM SEWING MACHINE MAINTENANCE MECHANIC) Rapid Strep A, POC Negative Negative Swab 12/22/2024 8:01 AM SEWING MACHINE MAINTENANCE MECHANIC us Jesenia Hoffmann LEATHER GOODS ASSEMBLER POINT OF CARE TEST ORDERABLES Final Result * POC Influenza A/B, COVID-19 antigen (12/02/2024 11:12 AM SEWING MACHINE MAINTENANCE MECHANIC) Influenza A Ag, POC Negative Negative [facility] Influenza B Ag, POC Negative Negative [facility] COVID-19 Ag POC Presumptive Negative Presumptive Negative, Invalid [facility] Nasal 12/02/2024 11:1 2 AM SEWING MACHINE MAINTENANCE MECHANIC us Jesenia Hoffmann LEATHER GOODS ASSEMBLER POINT OF CARE TEST ORDERABLES Final Result [facility] [place] [address] [place] [address], [facility] from Last 3 Months Insurance [facility] Care Teams Metrology Technician Relationship Specialty Start Date End Date Jesenia Hoffmann NP [address] [facility] [address] [place] [address] PCP - General Internal Medicine 12/25/22
--- OUTSIDE RECORDS SUMMARY | 2025-01-12 16:49 | XMS_ITS | Clinical Summary ---
Author Organization [facility] Address [address] [place] [address] Phone Care Team Providers Care Air Surveillance Operator Name Role Phone Jesenia Hoffmann NP Primary Care Provider [phone] Allergies Active Allergy Reactions Criticality Noted Date [...] 04/16/2023 Assessment & Plan (09/30/2024 10:53 AM COMPUTER SYSTEMS ANALYST): Discussed the patients BMI: The BMI is [...] 03/07/2023 Assessment & Plan (12/22/2024 7:51 AM COMPUTER SYSTEMS ANALYST): Discussed the patients BMI: The BMI is above average BMI management is complete. BMI follow-up includes: Nutrition Counseling and education provided Assessment & Plan (12/02/2024 10:28 AM COMPUTER SYSTEMS ANALYST): Discussed the patients BMI: The BMI is [...] education provided Abnormal urine odor 03/07/2023 08/13/20 23 BMI 34.0-34.9,adult 12/25/2022 03/07/20 23 Encounters Date Type Department Care Team Description 01/12/2025 Nurse Triage [facility] Internal Medicine at [place] [address] [place] [address] Jesenia Hoffmann NP 01/12/2025 Telephone [facility] Family Medicine [address] [facility] [address] [place] [address] Jesenia Hoffmann COMMUNITY EDUCATOR 12/22/2024 7:30 AM COMPUTER SYSTEMS ANALYST Office Visit [facility] Internal Medicine at [address] [place] [address] Jesenia Hoffmann, COMMUNITY EDUCATOR Sore throat (Primary Dx); BMI 31.0-31.9,adult; Obesity (BMI 30-39.9) 12/02/2024 10:30 AM COMPUTER SYSTEMS ANALYST Office Visit [facility] Internal Medicine at [address] [place] [address] Jesenia Hoffmann, COMMUNITY EDUCATOR Cough, unspecified type (Primary Dx); BMI 31.0-31.9,adult; Obesity (BMI 30-39.9) 10/23/2024 Telephone [facility] Internal Medicine at [address] [place] [phone] Jesenia Hoffmann, YELENA Medication Request from Last 3 Months Immunizations Immunization Administration Dates Next Due DTaP [...] Conjugate 7-Valent 03/02/2002,08/14 Tdap 08/13/2022,09/13/2018,02/29/2012 Varicella 02/29/2012,03/02/2002 Surgical History Surgery Date Site/Laterality Comments TONSILLECTOMY AND ADENOIDECTOMY Medical History Medical History Date Comments Vaginal delivery Family History Medical History Relation Name Comments Stroke Father No Known Problems Maternal Grandfather No Known Problems Maternal Grandmother No Known Problems Mother No Known Problems Paternal Grandfather Stent Paternal Grandmother Asthma Sister Relation Name Status Comments Father Alive Maternal Grandfather Maternal Grandmother Mother Alive Paternal Grandfather Alive Paternal Grandmother Alive Sister Social History Tobacco Use Types Packs/Day Years [...] Orientation Straight 08/11/2023 5: 30 PM CDT Obstetrics History Last Filed Vital Signs Vital Sign Reading Time Taken Comments Blood Pressure 122/68 09/30/2024 10:49 AM COMPUTER SYSTEMS ANALYST Pulse 124 12/22/2024 7:50 AM COMPUTER SYSTEMS ANALYST Temperature 37.8 C (100.1 F) 12/22/2024 7:50 AM COMPUTER SYSTEMS ANALYST Respiratory Rate - - Oxygen Saturation 99% 12/22/2024 7:50 AM COMPUTER SYSTEMS ANALYST Inhaled Oxygen Concentration - - Weight 79.4 kg (175 lb) 12/22/2024 7:50 AM COMPUTER SYSTEMS ANALYST Height 160 cm (5' 3 ) 12/22/2024 7:50 AM COMPUTER SYSTEMS ANALYST Body Mass Index 31 12/22/2024 7:50 AM COMPUTER SYSTEMS ANALYST Plan of Treatment Health Maintenance Due Date Last Done Comments Chlamydia and Gonorrhea (GC/CT) Screening 2000 Hepatitis C Screening 2000 HPV Vaccines (3 - 2-dose series) 02/20/2013 11/28/2012, 10/01/2012, 05/28/2012 Regular Well Visit/Exam 18-64 12/26/2023 12/25/2022 Cervical Cancer Screening 01/02/2024 01/01/2023 Covid-19 Vaccine ( season) 2024 04/06/2021, 03/09/2021 Influenza Vaccine (#1) 2025 , 09/13/2018, 12/10/2012 Postponed from 06/21/2024 (Patient declined, but will receive in the future) Depression Screening 12/22/2025 12/22/2024, 12/02/2024, 09/30/2024, Additional history exists DTaP/Tdap/Td Vaccine (8 - Td or Tdap) 08/13/2032 08/13/2022, 09/13/2018, 02/29/2012, Additional history exists Hepatitis B Screening Completed 03/02/2002 , 03/10/2001, 2000 Pneumococcal vaccine <65 Aged Out 03/02/2002, 07/22 No longer eligible based on patient's age to complete this topic Varicella Vaccines Completed 02/29/2012, 03/02/2002 Procedures Procedure Name Priority Date/Time Associated Diagnosis Comments POC INFLUENZA A/B, COVID-19 ANTIGEN Routine 12/22/2024 8:02 AM COMPUTER SYSTEMS ANALYST Sore throat POCT RAPID STREP Routine 12/22/2024 8:01 AM COMPUTER SYSTEMS ANALYST Sore throat POC INFLUENZA A/B, COVID-19 ANTIGEN Routine 12/02/2024 11:12 AM COMPUTER SYSTEMS ANALYST Cough, unspecified type from Last 3 Months Results * POC Influenza A/B, COVID-19 antigen (12/22/2024 8:02 AM COMPUTER SYSTEMS ANALYST) Influenza A Ag, POC Negative Negative [facility] Influenza B Ag, POC Negative Negative [facility] [place] COVID-19 Ag POC Presumptive Negative Presumptive Negative, Invalid [facility] Nasal 12/22/2024 8:02 AM COMPUTER SYSTEMS ANALYST Jesenia Hoffmann COMMUNITY EDUCATOR POINT OF CARE TEST ORDERABLES Final Result Performing Organization Address [facility]/[place] Co de Phone Number [facility] [address] * POCT rapid strep A (12/22/2024 8:01 AM COMPUTER SYSTEMS ANALYST) Rapid Strep A, POC Negative Negative Swab 12/22/2024 8:01 AM COMPUTER SYSTEMS ANALYST Jesenia Hoffmann COMMUNITY EDUCATOR POINT OF CARE TEST ORDERABLES Final Result * POC Influenza A/B, COVID-19 antigen (12/02/2024 11:12 AM COMPUTER SYSTEMS ANALYST) Influenza A Ag, POC Negative Negative [facility] Influenza B Ag, POC Negative Negative [facility] COVID-19 Ag POC Presumptive Negative Presumptive Negative, Invalid [facility] Nasal 12/02/2024 11:1 2 AM COMPUTER SYSTEMS ANALYST Jesenia Hoffmann COMMUNITY EDUCATOR POINT OF CARE TEST ORDERABLES Final Result Performing Organization Address City/[facility]/ZIP Co de Phone Number [facility] [address] from Last 3 Months Insurance [facility] Care Teams Air Surveillance Operator Relationship Specialty Start Date End Date Jesenia Hoffmann NP [address] [facility] [address] [place] [address] PCP - General Internal Medicine 12/25/22
== END 2025-01-12 16:56 | disposition home or self-care (01) ==
PROVIDERS: Emergency Medicine; Registered Nurse; Emergency Provider Student in an Organized Health Care Education/Training Program; PCP Nurse Practitioner Family
DX: R00.2 Palpitations (principal); F41.9 Anxiety disorder, unspecified
CPT/HCPCS: 36415; 71046; 80053; 80307; 81001; 81025; 83690; 84484; 85025; 85380; 85610; 85730; 93005; 93242; 99284